=== PATIENT | female | born 1990 | race African-American/Black ===

== ENCOUNTER 2016-09-18 17:52 | Emergency (ER) | payer SELFPAY ==
--- NOTE | 2016-09-18 18:10 | ER Document Report ---
ED Medical Screen (RME) - General Stated Complaint: TONGUE ISSUE Notes: patient is a 26 year old female p/w "yellow stuff on her tongue". she noticied it this am. able to scrape it off. Abx two weeks go, no recent vaginal odor or discharge. Denies inhaled medications I have greeted and performed a rapid initial assessment of this patient. A comprehensive ED assessment and evaluation of the patient, analysis of test results and completion of the medical decision making process will be conducted by additional ED providers. TRAVEL OUTSIDE OF THE [place] IN LAST 30 DAYS: No - Related Data Allergies/Adverse Reactions: No Known Allergies Allergy (Verified 09/18/16 18:08) Past Medical History - Immunizations Hx Diphtheria, Pertussis, Tetanus Vaccination: No - unknown Physical Exam - Vital signs Vitals: Temp Pulse Resp BP Pulse Ox 98.9 F 77 16 131/78 H 98 09/18/16 18:01 09/18/16 18:01 09/18/16 18:01 09/18/16 18:01 09/18/16 18:01 Course - Vital Signs Vital signs: Temp Pulse Resp BP Pulse Ox 98.9 F 77 16 131/78 H 98 09/18/16 18:01 09/18/16 18:01 09/18/16 18:01 09/18/16 18:01 09/18/16 18:01
--- NOTE | 2016-09-18 19:25 | ER Document Report ---
ED General - General Chief Complaint: Other Stated Complaint: TONGUE ISSUE Notes: Patient is a 26-year-old female recently diagnosed with bacterial vaginosis and treated with a course of metronidazole who presents with 2 days of a yellow, white material covering her tongue. Since that she was able to scrape out the toothbrush that it keeps coming back. Denies any difficulty breathing, swelling or pain to the tongue. No history of similar symptoms in the past. Nothing seems to improve or worsen her symptoms. She has not seen her primary care doctor regarding the above concerns. TRAVEL OUTSIDE OF THE [place] IN LAST 30 DAYS: No - Related Data Allergies/Adverse Reactions: No Known Allergies Allergy (Verified 09/18/16 18:08) Past Medical History - General Information source: Patient - Social History Smoking Status: Never Smoker Chew tobacco use (# tins/day): No Frequency of alcohol use: None Drug Abuse: None Lives with: Family Family History: Reviewed & Not Pertinent Patient has suicidal ideation: No Patient has homicidal ideation: No Renal/ Medical History: Denies: Hx Peritoneal Dialysis Surgical Hx: Negative - Immunizations Hx Diphtheria, Pertussis, Tetanus Vaccination: No - unknown Review of Systems - Review of Systems Notes: Constitutional: Negative for fever. HENT: Negative for sore throat. Eyes: Negative for visual changes. Cardiovascular: Negative for chest pain. Respiratory: Negative for shortness of breath. Gastrointestinal: Negative for abdominal pain, vomiting or diarrhea. Genitourinary: Negative for dysuria. Musculoskeletal: Negative for back pain. Skin: Negative for rash. Neurological: Negative for headaches, weakness or numbness. 10 point ROS negative except as marked above and in HPI. Physical Exam - Vital signs Vitals: Temp Pulse Resp BP Pulse Ox 98.9 F 77 16 131/78 H 98 09/18/16 18:01 09/18/16 18:01 09/18/16 18:01 09/18/16 18:01 09/18/16 18:01 Interpretation: Normal Notes: PHYSICAL EXAMINATION: GENERAL: Well-appearing, well-nourished and in no acute distress. HEAD: Atraumatic, normocephalic. EYES: sclera anicteric, conjunctiva are normal. ENT: Moist mucous membranes. There is a white, yellow material covering the central portion of the tongue is able to be scraped away without difficulty NECK: Normal range of motion LUNGS: Normal work of breathing HEART: 2+ radial pulses bilaterally EXTREMITIES: no pitting or edema. No cyanosis. NEUROLOGICAL: No focal neurological deficits. Moves all extremities spontaneously and on command. PSYCH: Normal mood, normal affect. SKIN: Warm, Dry, normal turgor, no rashes or lesions noted. Course - Re-evaluation Re-evalutation: 09/18/16 19:22 Patient presents with signs and symptoms consistent with oral thrush. She was started on nystatin. Oropharynx is widely patent without any evidence of Mynor 's angina, peritonsillar abscess, or airway compromise.At this time will discharge with return precautions and follow-up recommendations. Verbal discharge instructions given a the bedside and opportunity for questions given. Medication warnings reviewed. Patient is in agreement with this plan and has verbalized understanding of return precautions and the need for primary care follow-up in the next 24-72 hours. - Vital Signs Vital signs: Temp Pulse Resp BP Pulse Ox 98.5 F 63 16 132/73 H 96 09/18/16 20:35 09/18/16 20:35 09/18/16 20:35 09/18/16 20:35 09/18/16 20:35 Discharge - Discharge Clinical Impression: Thrush, oral Condition: Good Disposition: HOME, SELF-CARE Additional Instructions: You have thrush. Please use the nystatin swish as recommended. Follow up with your primary care doctor next several days. Return for any difficulty swallowing, breathing, worsening of your symptoms, or any other symptoms that are worrisome to you. Prescriptions: Nystatin 6 ml PO QID #200 ml
[2016-09-18 20:37] VITALS: BP 132/73
== END 2016-09-18 20:05 | disposition home or self-care (01) ==
LOC: ER 17:52
DX: B37.0 Candidal stomatitis (principal)
CPT/HCPCS: 99282

== ENCOUNTER 2016-12-15 08:42 | Emergency (ER) | payer SELFPAY ==
[2016-12-15 09:58] LABS: APPEARANCE,URINE SLIGHTLY-CLOUDY; BILIRUBIN,URINE NEGATIVE (NEGATIVE); GLUCOSE, URINE NEGATIVE (NEGATIVE); KETONES,URINE NEGATIVE (NEGATIVE); LEUKOCYTE ESTERASE,URINE NEGATIVE (NEGATIVE); NITRITE,URINE NEGATIVE (NEGATIVE); PROTEIN,URINE NEGATIVE (NEGATIVE)
[2016-12-15] MEDS ORDERED: ONDANSETRON 4 MG TAB.RAPDIS PO ONE (10:51)
[2016-12-15 11:33] LABS: ABSOLUTE LYMPHOCYTES (AUTO) 1.9 10^3/uL (0.5-4.7); ABSOLUTE MONOCYTES (AUTO) 0.6 10^3/uL (0.1-1.4); ABSOLUTE NEUT (AUTO) 8.6 10^3/uL (1.7-8.2); BASOPHILS % (AUTO) 0.4 % (0-2); EOSINOPHILS % (AUTO) 0.4 % (0-6); HEMOGLOBIN 13.1 g/dL (12.0-15.5); HGB HCT DIFFERENCE -1.7; LYMPHOCYTES % (AUTO) 17.4 % (13-45); MEAN CORPUSCULAR HEMOGLOBIN 27.8 pg (27.0-33.4); MEAN CORPUSCULAR HGB CONC 31.8 g/dL (32.0-36.0); MEAN CORPUSCULAR VOLUME 87 fl (80-97); MONOCYTES % (AUTO) 5.2 % (3-13); RED CELL DISTRIBUTION WIDTH 13.1 % (11.5-14.0); SEGMENTED NEUTROPHILS % (AUTO) 76.6 % (42-78); WHITE BLOOD COUNT 11.2 10^3/uL (4.0-10.5)
[2016-12-15 12:02] LABS: ANION GAP 10 (5-19); BLOOD UREA NITROGEN 10 mg/dL (7-20); CALCIUM 9.5 mg/dL (8.4-10.2); CARBON DIOXIDE 25 mmol/L (22-30); CHLORIDE 104 mmol/L (98-107); CREATININE RESULT 0.68 mg/dL (0.52-1.25); GLUCOSE 82 mg/dL (75-110); LIPASE 39.8 U/L (23-300); POTASSIUM 4.7 mmol/L (3.6-5.0)
--- NOTE | 2016-12-15 12:19 | ER Document Report ---
ED GI/ - General Chief Complaint: Vomiting/Diarrhea Stated Complaint: DIARRHEA, VOMITTING Time Seen by Provider: 12/15/16 09:49 Notes: 26-year-old female presents emergency department complaining of vomiting and diarrhea since yesterday. Denies any abdominal pain, blood in her vomit, pelvic pain, urinary urgency, hesitancy, pyuria, vaginal itching, abnormal vaginal discharge. TRAVEL OUTSIDE OF THE [place] IN LAST 30 DAYS: No - Related Data Allergies/Adverse Reactions: No Known Allergies Allergy (Verified 12/15/16 08:45) Past Medical History - Social History Smoking Status: Never Smoker Family History: Reviewed & Not Pertinent Patient has suicidal ideation: No Patient has homicidal ideation: No Renal/ Medical History: Denies: Hx Peritoneal Dialysis - Immunizations Hx Diphtheria, Pertussis, Tetanus Vaccination: No - unknown Review of Systems - Review of Systems Constitutional: No symptoms reported EENT: No symptoms reported Cardiovascular: No symptoms reported Respiratory: No symptoms reported Gastrointestinal: See HPI Genitourinary: See HPI Female Genitourinary: See HPI -: Yes All other systems reviewed and negative Physical Exam - Vital signs Vitals: Temp Pulse Resp BP Pulse Ox 98.1 F 78 16 124/56 L 98 12/15/16 08:46 12/15/16 08:46 12/15/16 08:46 12/15/16 08:46 12/15/16 08:46 - Notes Notes: PHYSICAL EXAM GENERAL: Alert, interacts well. HEAD: Normocephalic, atraumatic. EYES: Pupils equal, round, and reactive to light. Extraocular movements intact. ENT: Oral mucosa moist, tongue midline. NECK: Full range of motion. Supple. Trachea midline. LUNGS: Clear to auscultation bilaterally, no wheezes, rales, or rhonchi. No respiratory distress. HEART: Regular rate and rhythm. No murmurs, gallops, or rubs. ABDOMEN: Soft, nondistended, nontender. No guarding, rebound, or rigidity.. Bowel sounds present in all 4 quadrants. FEMALE : Normal external exam. No evidence of lesions, lacerations, bruising or vesicles. Speculum exam normal cervix closed. No evidence of vaginal discharge with odor. No evidence of lesions. No vaginal bleeding. Bimanual exam normal no cervical motion tenderness. No adnexal mass or adnexal tenderness. EXTREMITIES: Moves all 4 extremities spontaneously. No edema, radial and dorsalis pedis pulses 2/4 bilaterally. No cyanosis. NEUROLOGICAL: Alert and oriented x4. Normal speech. PSYCH: Normal affect, normal mood. SKIN: Warm, dry, normal turgor. No rashes or lesions noted. Course - Re-evaluation Re-evalutation: 12/15/16 19:44 Patient is a 26-year-old female who is hemodynamic stable, no acute distress afebrile. Labs without any abnormalities. Pelvic exam normal. Patient to go home on [id number] medication and to follow-up with primary care. Discussed signs and symptoms to be aware to return to emergency department. Patient is agreeable with plan. - Vital Signs Vital signs: Temp Pulse Resp BP Pulse Ox 98.5 F 72 16 113/63 96 12/15/16 13:14 12/15/16 13:14 12/15/16 13:14 12/15/16 13:14 12/15/16 13:14 - Laboratory Result Diagrams: 12/15/16 11:15 12/15/16 11:15 Laboratory results interpreted by me: 12/15/16 12/15/16 09:40 11:15 WBC 11.2 H MCHC 31.8 L Absolute Neutrophils 8.6 H Urine Urobilinogen 2.0 H Discharge - Discharge Clinical Impression: Vomiting Condition: Good Disposition: HOME, SELF-CARE Instructions: Vomiting ([facility]), Diarrhea, Nonspecific ([facility]), Antinausea Medication ([facility]) Additional Instructions: Patients should be encouraged to eat as tolerated. Smaller meals may be less likely to induce vomiting than larger ones. Carbon, low residue foods may also be better tolerated than others. For healthy adults with acute viral gastroenteritis without signs of dehydration , sport drinks, diluted fruit juices, and other flavored soft drinks augmented with saltine crackers and broths or soups can meet the fluid and salt needs in almost all cases. Broiled starches/cereals (potatoes, noodles, rice, wheat, and oat) with some salt are excellent foods to consider. In addition, crackers, bananas, yogurt, soups, and boiled vegetables can also be consumed. While the BRAT diet (bananas, rice, applesauce, and toast) Prescriptions: Ondansetron HCl [Zofran 4 mg Tablet] 1 - 2 tab PO Q4H PRN #30 tablet PRN Reason: Forms: Return to Work Referrals: ALLAN SHARP MD [COMMUNITY BASED STAFF] - Follow up as needed
[2016-12-15 12:24] LABS: CHLAM PCR NOT DETECTED (NOT DETECT)
[2016-12-15 13:17] VITALS: BP 113/63
== END 2016-12-15 13:18 | disposition home or self-care (01) ==
LOC: ER 08:42
DX: R11.10 Vomiting, unspecified (principal); R19.7 Diarrhea, unspecified
CPT/HCPCS: 99284; 36415; 87086; 87210; 83690; 85025; 81025; 80048; 81001; 87491; 87591; S0119

== ENCOUNTER 2017-10-08 19:51 | Emergency (ER) | payer OTHER ==
[2017-10-08 22:27] LABS: HEMATOCRIT 39.5 % (36.0-47.0); HEMOGLOBIN 13.1 g/dL (12.0-15.5); MEAN CORPUSCULAR HEMOGLOBIN 28.4 pg (27.0-33.4); MEAN CORPUSCULAR HGB CONC 33.1 g/dL (32.0-36.0); MEAN CORPUSCULAR VOLUME 86 fl (80-97); PLATELET COUNT 350 10^3/uL (150-450); RED BLOOD COUNT 4.61 10^6/uL (3.72-5.28); RED CELL DISTRIBUTION WIDTH 13.4 % (11.5-14.0); WHITE BLOOD COUNT 22.8 10^3/uL (4.0-10.5)
[2017-10-08 22:49] LABS: ABSOLUTE LYMPHOCYTES# (MANUAL) 1.8 10^3/uL (0.5-4.7); ABSOLUTE MONOCYTES # (MANUAL) 0.7 10^3/uL (0.1-1.4); ABSOLUTE NEUTROPHILS# (MANUAL) 20.3 10^3/uL (1.7-8.2); BASOPHILS % (MANUAL) 0 % (0-2); EOSINOPHILS % (MANUAL) 0 % (0-6); LYMPHOCYTES % (MANUAL) 8 % (13-45); MONOCYTES % (MANUAL) 3 % (3-13); SEGMENTED NEUTROPHILS % (MAN) 89 % (42-78); TOTAL CELLS COUNTED 100
[2017-10-08] MEDS ORDERED: NORMAL SALINE 1000 ML 1,000 ML IV ONE (22:49)
[2017-10-08] MEDS ORDERED: ONDANSETRON HCL INJ/PF 4 MG/2 ML SDV IV ONE (22:50)
[2017-10-08] MEDS ORDERED: MORPHINE SULFATE 10 MG/ML INJ IV PRN (22:50)
[2017-10-08 22:51] LABS: PLATELET COMMENT ADEQUATE; PLATELET LARGE PRESENT; RBC MORPHOLOGY COMMENT NORMO-CYTIC/CHROMIC
[2017-10-08 22:57] LABS: ALANINE AMINOTRANSFERASE 38 U/L (9-52); ALBUMIN 4.4 g/dL (3.5-5.0); ALKALINE PHOSPHATASE 73 U/L (38-126); ANION GAP 10 (5-19); ASPARTATE AMINO TRANSFERASE 27 U/L (14-36); BILIRUBIN,DIRECT 0.1 mg/dL (0.0-0.4); BILIRUBIN,TOTAL 0.5 mg/dL (0.2-1.3); BLOOD UREA NITROGEN 14 mg/dL (7-20); CALCIUM 9.9 mg/dL (8.4-10.2); CARBON DIOXIDE 26 mmol/L (22-30); CHLORIDE 102 mmol/L (98-107); GLUCOSE 89 mg/dL (75-110); LIPASE 44.7 U/L (23-300); POTASSIUM 4.2 mmol/L (3.6-5.0); TOTAL PROTEIN 7.1 g/dL (6.3-8.2)
--- NOTE | 2017-10-08 23:01 | ER Document Report ---
ED General - General Chief Complaint: Abdominal Pain Stated Complaint: ABDOMINAL PAIN Time Seen by Provider: 10/08/17 21:24 Notes: Patient is a 27-year-old female without past medical history, no prior surgical history presents with 24 hours of generalized abdominal cramping, nausea, and diarrhea. Patient reports that the symptoms started gradually and have been worsening since onset. She describes the pain as a generalized, cramping, bloating pain. She states that it feels like she has to have a bowel movement or pass gas but she is unable to do so. Nothing worsens her symptoms. She denies any history of similar symptoms in the past. She has had a fever at home. She denies any associated dysuria, hematuria, headache, neck pain, cough or sputum production. She has not seen her primary doctor regarding today's concerns. TRAVEL OUTSIDE OF THE [place] IN LAST 30 DAYS: No - Related Data Allergies/Adverse Reactions: No Known Allergies Allergy (Verified 12/15/16 08:45) Past Medical History - General Information source: Patient - Social History Smoking Status: Never Smoker Chew tobacco use (# tins/day): No Frequency of alcohol use: Occasional Drug Abuse: None Lives with: Family Family History: Reviewed & Not Pertinent Patient has suicidal ideation: No Patient has homicidal ideation: No Renal/ Medical History: Denies: Hx Peritoneal Dialysis - Immunizations Hx Diphtheria, Pertussis, Tetanus Vaccination: No - unknown Review of Systems - Review of Systems Notes: Constitutional: Negative for fever. HENT: Negative for sore throat. Eyes: Negative for visual changes. Cardiovascular: Negative for chest pain. Respiratory: Negative for shortness of breath. Gastrointestinal: Positive for abdominal pain and diarrhea Genitourinary: Negative for dysuria. Musculoskeletal: Negative for back pain. Skin: Negative for rash. Neurological: Negative for headaches, weakness or numbness. 10 point ROS negative except as marked above and in HPI. Physical Exam - Vital signs Vitals: Temp Pulse Resp BP Pulse Ox 100.2 F 98 18 143/67 H 98 10/08/17 20:16 10/08/17 20:16 10/08/17 20:16 10/08/17 20:16 10/08/17 20:16 Interpretation: Normal Notes: PHYSICAL EXAMINATION: GENERAL: Appears moderately uncomfortable but no acute distress HEAD: Atraumatic, normocephalic. EYES: Pupils equal round and reactive to light, extraocular movements intact, sclera anicteric, conjunctiva are normal. ENT: nares patent, oropharynx clear without exudates. Moderately dry mucous membranes. NECK: Normal range of motion, supple without lymphadenopathy LUNGS: Breath sounds clear to auscultation bilaterally and equal. No wheezes rales or rhonchi. HEART: Regular tachycardia without murmurs ABDOMEN: Soft, generalized lower abdominal tenderness on palpation but no upper abdominal tenderness on palpation, normoactive bowel sounds. No guarding, no rebound. No masses appreciated. EXTREMITIES: Normal range of motion, no pitting or edema. No cyanosis. NEUROLOGICAL: No focal neurological deficits. Moves all extremities spontaneously and on command. PSYCH: Normal mood, normal affect. SKIN: Warm, Dry, normal turgor, no rashes or lesions noted. Course - Re-evaluation Re-evalutation: 10/08/17 23:00 Patient presents with generalized lower abdominal discomfort that is described as cramping, she appears quite uncomfortable. She has diffuse tenderness to the lower abdomen without any areas of rigidity, rebound or guarding. She has no vomiting but has had started within the last several hours. She reports a subjective fever at home. She has not had any vomiting. Clinical history and exam are most consistent with a likely colitis however laboratories are notable for an impressive leukocytosis. Given her degree of pain, her marked leukocytosis, tachycardia and fever will proceed with a CT abdomen pelvis further clarify. 10/09/17 01:42 CT scan does demonstrate findings consistent with an acute colitis which appears most consistent with patient's clinical presentation. Patient has had improvement of her symptoms with supportive care in the emergency department and is now able to tolerate oral intake. She was started on ciprofloxacin and metronidazole for presumption of infectious colitis. At this time will discharge with return precautions and follow-up recommendations. Verbal discharge instructions given a the bedside and opportunity for questions given. Medication warnings reviewed. Patient is in agreement with this plan and has verbalized understanding of return precautions and the need for primary care follow-up in the next 24-72 hours. - Vital Signs Vital signs: Temp Pulse Resp BP Pulse Ox 100.2 F 98 18 143/67 H 98 10/08/17 20:16 10/08/17 20:16 10/08/17 20:16 10/08/17 20:16 10/08/17 20:16 - Laboratory Result Diagrams: 10/08/17 22:10 10/08/17 22:10 Laboratory results interpreted by me: 10/08/17 10/08/17 22:10 22:30 WBC 22.8 H Seg Neuts % (Manual) 89 H Lymphocytes % (Manual) 8 L Abs Neuts (Manual) 20.3 H Urine Blood MODERATE H Urine Urobilinogen 2.0 H Ur Leukocyte Esterase MODERATE H - Diagnostic Test Radiology reviewed: Reports reviewed Discharge - Discharge Clinical Impression: Infectious colitis, Generalized abdominal pain Diarrhea Qualifiers: Diarrhea type: unspecified type Qualified Code(s): R19.7 - Diarrhea, unspecified Condition: Good Disposition: HOME, SELF-CARE Additional Instructions: You were seen today for abdominal pain with associated diarrhea. Your CT scan does show diffuse inflammation of the colon suggestive of an infectious colitis. You are being started on antibiotics to treat this infection and inflammation. Please take all of them as directed and complete them even if your symptoms resolve. Please follow-up with your primary care physician within the next 48 hours. Return to the emergency department immediately if you develop worsening pain, persistent vomiting, began having bloody stools, develop a fever of greater than 101F, or have any other symptoms that are concerning to you. Prescriptions: Ciprofloxacin HCl [Cipro 500 mg Tablet] 500 mg PO BID #20 tablet Metronidazole [Flagyl 500 mg Tablet] 500 mg PO Q6H #40 tablet Forms: Return to Work
[2017-10-08 23:45] LABS: APPEARANCE,URINE CLEAR; BILIRUBIN,URINE NEGATIVE (NEGATIVE); COLOR,URINE YELLOW; GLUCOSE, URINE NEGATIVE (NEGATIVE); KETONES,URINE NEGATIVE (NEGATIVE); LEUKOCYTE ESTERASE,URINE MODERATE (NEGATIVE); NITRITE,URINE NEGATIVE (NEGATIVE); PROTEIN,URINE NEGATIVE (NEGATIVE); URINE SPECIFIC GRAVITY 1.021
[2017-10-09] MEDS ORDERED: KETOROLAC TROMETHAMINE INJ/PF 30 MG/1 ML SDV IV ONE (01:16)
--- NOTE | 2017-10-09 01:28 | RADIOLOGY REPORT (SQ) ---
EXAM DESCRIPTION: CT ABD/PELVIS WITH IV ONLY CLINICAL HISTORY: 27 years Female, diffuse abdominal pain, leukocytosis COMPARISON: None. TECHNIQUE: 100 mL Isovue-370 contrast. Coronal and sagittal reformat. This exam was performed according to our departmental dose-optimization program, which includes automated exposure control, adjustment of the mA and/or kV according to patient size and/or use of iterative reconstruction technique. FINDINGS: Moderate diffuse bowel wall thickening of the transverse, left, and sigmoid colon. [id number] diffuse bowel wall thickening of several segments of jejunal and ileal small bowel including at the upper pelvis with mild inflamed surrounding fat. Terminal ileum has a normal CT appearance. Mild mesenteric lymphadenitis of the right lower abdominal quadrant. 0.5 cm diameter air-filled appendix itself appears within normal limits. There is small nonspecific streakiness associated with periappendiceal fat. 0.2 cm uncomplicated right renal stone. Inferior thorax, liver, gallbladder, pancreas, spleen, adrenals, renal system, pelvic organs, lymphatics, vasculature, and musculoskeleton appear otherwise unremarkable. IMPRESSION: Bowel wall thickening of the colon and small bowel. Infectious, inflammatory, and neoplastic processes are in the differential diagnosis.
[2017-10-09] MEDS ORDERED: METRONIDAZOLE 500 MG TABLET PO ONE (01:41)
[2017-10-09] MEDS ORDERED: HYDROCODONE/ACETAMINOPHEN 5-325 MG (6 TAB/ER DISP) PO PRN (01:41)
[2017-10-09] MEDS ORDERED: CIPROFLOXACIN HCL 500 MG TABLET PO ONE (01:41)
[2017-10-09] MEDS ORDERED: ONDANSETRON ODT 4 MG TAB (6 TAB/ER DISP) PO PRN (01:41)
[2017-10-09 02:02] VITALS: BP 118/59
== END 2017-10-09 02:07 | disposition home or self-care (01) ==
LOC: ER 19:51
DX: A09 Infectious gastroenteritis and colitis, unspecified (principal); R10.84 Generalized abdominal pain; R11.0 Nausea
CPT/HCPCS: 99284; 96361; 96374; 96375; 36415; 83690; 84703; 85025; 80053; 81001; 74177; J1885; J2270; J2405; J7030

== ENCOUNTER 2017-10-13 23:10 | Inpatient (IN) | payer OTHER ==
[2017-10-14] MEDS ORDERED: NORMAL SALINE 1000 ML 1,000 ML IV ONE ×2 (00:53→02:14)
[2017-10-14] MEDS ORDERED: DICYCLOMINE HCL 20 MG TABLET PO ONE (00:59)
[2017-10-14] MEDS ORDERED: ONDANSETRON HCL INJ/PF 4 MG/2 ML SDV IV ONE (00:59)
[2017-10-14 01:36] LABS: ABSOLUTE BASOPHILS # (AUTO) 0.1 10^3/uL (0.0-0.2); ABSOLUTE LYMPHOCYTES (AUTO) 1.8 10^3/uL (0.5-4.7); ABSOLUTE MONOCYTES (AUTO) 0.9 10^3/uL (0.1-1.4); BASOPHILS % (AUTO) 0.3 % (0-2); EOSINOPHILS % (AUTO) 0.1 % (0-6); HEMATOCRIT 38.5 % (36.0-47.0); HEMOGLOBIN 12.9 g/dL (12.0-15.5); LYMPHOCYTES % (AUTO) 9.8 % (13-45); MEAN CORPUSCULAR HEMOGLOBIN 28.5 pg (27.0-33.4); MEAN CORPUSCULAR HGB CONC 33.6 g/dL (32.0-36.0); MEAN CORPUSCULAR VOLUME 85 fl (80-97); PLATELET COUNT 418 10^3/uL (150-450); RED BLOOD COUNT 4.55 10^6/uL (3.72-5.28); RED CELL DISTRIBUTION WIDTH 13.2 % (11.5-14.0); SEGMENTED NEUTROPHILS % (AUTO) 84.8 % (42-78); TOTAL CELLS COUNTED % (AUTO) 100 %
[2017-10-14 01:41] LABS: APPEARANCE,URINE SLIGHTLY-CLOUDY; BILIRUBIN,URINE NEGATIVE (NEGATIVE); COLOR,URINE AMBER; GLUCOSE, URINE NEGATIVE (NEGATIVE); KETONES,URINE 20 mg/dL (NEGATIVE); LEUKOCYTE ESTERASE,URINE LARGE (NEGATIVE); NITRITE,URINE NEGATIVE (NEGATIVE); PROTEIN,URINE NEGATIVE (NEGATIVE); URINE SPECIFIC GRAVITY 1.028
[2017-10-14 01:43] LABS: WHITE BLOOD COUNT 18.8 10^3/uL (4.0-10.5)
[2017-10-14 01:47] LABS: ALANINE AMINOTRANSFERASE 35 U/L (9-52); ALBUMIN 4.3 g/dL (3.5-5.0); ALKALINE PHOSPHATASE 56 U/L (38-126); ANION GAP 14 (5-19); ASPARTATE AMINO TRANSFERASE 24 U/L (14-36); BILIRUBIN,DIRECT 0.3 mg/dL (0.0-0.4); BILIRUBIN,TOTAL 0.4 mg/dL (0.2-1.3); BLOOD UREA NITROGEN 12 mg/dL (7-20); CALCIUM 9.9 mg/dL (8.4-10.2); CARBON DIOXIDE 25 mmol/L (22-30); CHLORIDE 102 mmol/L (98-107); GLUCOSE 100 mg/dL (75-110); POTASSIUM 4.9 mmol/L (3.6-5.0); SODIUM 141.2 mmol/L (137-145); TOTAL PROTEIN 7.3 g/dL (6.3-8.2)
--- NOTE | 2017-10-14 02:28 | ER Document Report ---
ED GI/ - General Chief Complaint: Abdominal Pain Stated Complaint: FEVER Time Seen by Provider: 10/14/17 00:43 Mode of Arrival: Ambulatory Information source: Patient TRAVEL OUTSIDE OF THE [place] IN LAST 30 DAYS: No - HPI Patient complains to provider of: Abdominal pain, Vomiting Onset: This afternoon Timing/Duration: Gradual, Persistent Quality of pain: Cramping, Pressure, Stabbing Severity at maximum: Moderate Severity in ED: Moderate Pain Level: 4 Associated symptoms: Fever, Nausea, Vomiting Exacerbated by: Denies Relieved by: Denies Similar symptoms previously: Yes Recently seen / treated by doctor: Yes Notes: 10/14/17 02:31 Patient is a 27-year-old female presenting to the emergency room complaining of worsening abdominal pain with vomiting and fever, symptoms started approximately 5-6 days ago, she was seen in this emergency department and diagnosed with infectious colitis, discharged home with p.o. antibiotics, she came back the next day because she was unable to tolerate the p.o. antibiotics at home and was feeling much worse, she was admitted to the hospitalist service , treated with IV antibiotics, her white count trended down and she started to feel much better, was discharged on 10/12/2017 with further p.o. antibiotics, over the course of the last 2-3 days she has been feeling much worse prompting her to return to the emergency room this, on arrival she is tachycardic and appears to be in moderate pain - Related Data Allergies/Adverse Reactions: No Known Allergies Allergy (Verified 12/15/16 08:45) Past Medical History - General Information source: Patient - Social History Smoking Status: Never Smoker Chew tobacco use (# tins/day): No Frequency of alcohol use: None Drug Abuse: None Family History: Reviewed & Not Pertinent Patient has suicidal ideation: No Patient has homicidal ideation: No Renal/ Medical History: Denies: Hx Peritoneal Dialysis - Immunizations Hx Diphtheria, Pertussis, Tetanus Vaccination: No - unknown Review of Systems - Review of Systems Constitutional: Chills, Fever EENT: No symptoms reported Cardiovascular: No symptoms reported Respiratory: No symptoms reported Gastrointestinal: See HPI Genitourinary: No symptoms reported Female Genitourinary: No symptoms reported Musculoskeletal: No symptoms reported Skin: No symptoms reported Hematologic/Lymphatic: No symptoms reported Neurological/Psychological: No symptoms reported -: Yes All other systems reviewed and negative Physical Exam - Vital signs Vitals: Temp Pulse Resp BP Pulse Ox 99.5 F 120 H 20 131/76 H 96 10/13/17 23:35 10/13/17 23:35 10/13/17 23:35 10/13/17 23:35 10/13/17 23:35 Interpretation: Tachycardic - General General appearance: Alert In distress: Mild - HEENT Head: Normocephalic, Atraumatic Eyes: Normal Pupils: PERRL - Respiratory Respiratory status: No respiratory distress Chest status: Nontender Breath sounds: Normal Chest palpation: Normal - Cardiovascular Rhythm: Regular Heart sounds: Normal auscultation Murmur: No - Abdominal Inspection: Normal Distension: No distension Bowel sounds: Normal Tenderness: Tender - Mild diffuse tenderness Organomegaly: No organomegaly - Back Back: Normal, Nontender - Extremities General upper extremity: Normal inspection, Nontender, Normal color, Normal ROM , Normal temperature General lower extremity: Normal inspection, Nontender, Normal color, Normal ROM , Normal temperature, Normal weight bearing. No: Katia's sign - Neurological Neuro grossly intact: Yes Cognition: Normal Orientation: AAOx4 Radha Coma Scale Eye Opening: Spontaneous [place] Coma Scale Verbal: Oriented Radha Coma Scale Motor: Obeys Commands [place] Coma Scale Total: 15 Speech: Normal Motor strength normal: LUE, RUE, LLE, RLE Sensory: Normal - Psychological Associated symptoms: Normal affect, Normal mood - Skin Skin Temperature: Warm Skin Moisture: Dry Skin Color: Normal Course - Re-evaluation Re-evalutation: 10/14/17 02:33 Patient with worsening abdominal pain, mild elevated temperature and increase in leukocytosis from when she was discharged just 2 days ago, she has been taking her antibiotics at home but is feeling much worse today, was recently diagnosed with infectious colitis, patient was discussed with the hospitalist who agrees to admit for further evaluation and treatment - Vital Signs Vital signs: Temp Pulse Resp BP Pulse Ox 99.5 F 120 H 12 114/73 96 10/13/17 23:35 10/13/17 23:35 10/14/17 02:14 10/14/17 02:14 10/14/17 02:14 - Laboratory Result Diagrams: 10/14/17 01:05 10/14/17 01:05 Laboratory results interpreted by me: 10/14/17 10/14/17 01:05 01:10 WBC 18.8 H D Seg Neutrophils % 84.8 H Lymphocytes % 9.8 L Absolute Neutrophils 16.0 H Urine Ketones 20 H Urine Blood MODERATE H Urine Urobilinogen 2.0 H Ur Leukocyte Esterase LARGE H Discharge - Discharge Clinical Impression: Infectious colitis, Generalized abdominal pain Condition: Fair Disposition: ADMITTED INPATIENT Admitting Provider: Hospitalist Unit Admitted: Medical Floor
[2017-10-14] MEDS ORDERED: MAG HYDROX/AL HYDROX/SIMETH SUSP 30 ML UDCUP PO PRN (02:48)
[2017-10-14] MEDS ORDERED: IPRATROPIUM/ALBUTEROL 0.5-2.5 MG/3 ML AMPUL NEB PRN (02:48)
[2017-10-14] MEDS ORDERED: MAGNESIUM HYDROXIDE SUSP 30 ML UDCUP PO PRN (02:48)
[2017-10-14] MEDS ORDERED: CIPROFLOXACIN 400 MG/D5W RTU 400 MG/200 ML RTUPB IV SCH (04:00)
--- NOTE | 2017-10-14 04:33 | PDOC H&P ---
History of Present Illness Admission Date/PCP: 10/14/17 02:47 Patient complains of: Abdominal pain History of Present Illness: TRISTA JOHN is a 27 year old female with a past medical history of obesity and hospitalization for infectious colitis 4 days ago discharged yesterday. Patient was greatly improved at time of discharge after empiric treatment with IV Cipro and Flagyl. She was discharged with oral equivalents and compliant however developed a return of abdominal pain and loose stools prompting her return to the emergency room. She admits nausea without vomiting and diarrhea without blood. She denies polyuria, dysuria, previous episode, infectious contacts or suspect meals. In the emergency room she is found to have leukocytosis of 18,000. She is referred to the hospitalist for admission Past Medical History Medical History: None Cardiac Medical History: Reports: None Pulmonary Medical History: Reports: None EENT Medical History: Reports: None Neurological Medical History: Reports: None Endocrine Medical History: Reports: None Renal/ Medical History: Reports: None Malignancy Medical History: Reports: None GI Medical History: Reports: Other - Colitis Musculoskeltal Medical History: Reports: None Skin Medical History: Reports: None Psychiatric Medical History: Reports: None Traumatic Medical History: Reports: None Hematology: Reports: None Infectious Medical History: Reports: None Past Surgical History Past Surgical History: Reports: None Social History Information Source: Patient Lives with: Family Smoking Status: Never Smoker Frequency of Alcohol Use: Rare Hx Recreational Drug Use: No Drugs: None - Advance Directive Resuscitation Status: Full Code Family History Family History: DM, Hyperlipidemia, Hypertension Parental Family History Reviewed: Yes Children Family History Reviewed: Yes Sibling(s) Family History Reviewed.: Yes Medication/Allergy Home Medications: Ciprofloxacin HCl [Cipro 500 mg Tablet] 500 mg PO BID 10/10/17 Multivitamin [Daily Multiple Vitamin] 1 tab PO DAILY 10/10/17 Metronidazole [Flagyl 500 mg Tablet] 500 mg PO Q8 #30 tablet 10/12/17 Ondansetron [Zofran Odt 4 mg Tablet] 4 mg PO Q6HP PRN #30 tab.rapdis 10/12/17 Hydrocodone Bit/Acetaminophen [Hydrocodon-Acetaminophen 5-325] 1 each PO ASDIR PRN 10/14/17 Allergies/Adverse Reactions: No Known Allergies Allergy (Verified 12/15/16 08:45) Review of Systems Constitutional: ABSENT: chills, fever(s), headache(s), weight gain, weight loss Eyes: ABSENT: visual disturbances Ears: ABSENT: hearing changes Cardiovascular: ABSENT: chest pain, dyspnea on exertion, edema, orthropnea, palpitations Respiratory: ABSENT: cough, hemoptysis Gastrointestinal: ABSENT: abdominal pain, constipation, diarrhea, hematemesis, hematochezia, nausea, vomiting Genitourinary: ABSENT: dysuria, hematuria Musculoskeletal: ABSENT: joint swelling Integumentary: ABSENT: rash, wounds Neurological: ABSENT: abnormal gait, abnormal speech, confusion, dizziness, focal weakness, syncope Psychiatric: ABSENT: anxiety, depression, homidical ideation, suicidal ideation Endocrine: ABSENT: cold intolerance, heat intolerance, polydipsia, polyuria Hematologic/Lymphatic: ABSENT: easy bleeding, easy bruising Physical Exam Vital Signs: Temp Pulse Resp BP Pulse Ox 99.5 F 120 H 24 H 103/58 L 97 10/13/17 23:35 10/13/17 23:35 10/14/17 03:01 10/14/17 03:01 10/14/17 03:01 General appearance: PRESENT: cooperative, mild distress, morbidly obese Head exam: PRESENT: atraumatic, normocephalic Eye exam: PRESENT: conjunctiva pink, EOMI, PERRLA. ABSENT: scleral icterus Ear exam: PRESENT: normal external ear exam Mouth exam: PRESENT: moist, tongue midline Neck exam: ABSENT: carotid bruit, JVD, lymphadenopathy, thyromegaly Respiratory exam: PRESENT: clear to auscultation nalini. ABSENT: rales, rhonchi, wheezes Cardiovascular exam: PRESENT: tachycardia. ABSENT: diastolic murmur, rubs, systolic murmur Pulses: PRESENT: normal dorsalis pedis pul Vascular exam: PRESENT: normal capillary refill GI/Abdominal exam: PRESENT: diminished bowel sounds, distended, hypoactive bowel sounds, soft, tenderness. ABSENT: ascites, firm, guarding, hernia, rebound Rectal exam: PRESENT: deferred Extremities exam: PRESENT: full ROM. ABSENT: calf tenderness, clubbing, pedal edema Neurological exam: PRESENT: alert, awake, oriented to person, oriented to place , oriented to time, oriented to situation, CN II-XII grossly intact. ABSENT: motor sensory deficit Psychiatric exam: PRESENT: appropriate affect, normal mood. ABSENT: homicidal ideation, suicidal ideation Skin exam: PRESENT: dry, intact, warm. ABSENT: cyanosis, rash Assessment & Plan - Diagnosis (1) Generalized abdominal pain Is this a current diagnosis for this admission?: Yes Plan: Likely secondary to infectious colitis. Treatment of active infection and symptomatic management. (2) Infectious colitis Is this a current diagnosis for this admission?: Yes Plan: Medical bed, collection of stool sample for WBC and C. difficile. IV fluid challenge, empiric treatment with IV Flagyl and Cipro initiated follow-up CBC, chemistry and aforementioned labs. - Time Time Spent: 30 to 50 Minutes - Inpatient Certification Medical Necessity: Need Close Monitoring Due to Risk of Patient Decompensation
[2017-10-14] MEDS: ACETAMINOPHEN 325 MG TABLET PO PRN ×3 (05:09→22:00)
[2017-10-14] MEDS: HEPARIN SOD (PORCINE) 5,000 UNIT/ML 1 ML SYRINGE SUBCUT SCH ×3 (05:09→22:01)
[2017-10-14 05:55] LABS: APPEARANCE,URINE SLIGHTLY-CLOUDY; BILIRUBIN,URINE NEGATIVE (NEGATIVE); COLOR,URINE YELLOW; GLUCOSE, URINE NEGATIVE (NEGATIVE); KETONES,URINE NEGATIVE (NEGATIVE); LEUKOCYTE ESTERASE,URINE LARGE (NEGATIVE); NITRITE,URINE NEGATIVE (NEGATIVE); PROTEIN,URINE NEGATIVE (NEGATIVE); URINE SPECIFIC GRAVITY 1.012; UROBILINOGEN,URINE NEGATIVE mg/dL (<2.0)
[2017-10-14] MEDS: DOCUSATE SODIUM 100 MG CAPSULE PO SCH ×2 (09:21→17:03)
[2017-10-14 10:50] LABS: ABSOLUTE BASOPHILS # (AUTO) 0.1 10^3/uL (0.0-0.2); ABSOLUTE MONOCYTES (AUTO) 0.9 10^3/uL (0.1-1.4); ABSOLUTE NEUT (AUTO) 11.8 10^3/uL (1.7-8.2); BASOPHILS % (AUTO) 0.4 % (0-2); EOSINOPHILS % (AUTO) 0.3 % (0-6); HEMATOCRIT 33.8 % (36.0-47.0); LYMPHOCYTES % (AUTO) 13.6 % (13-45); MEAN CORPUSCULAR HEMOGLOBIN 28.2 pg (27.0-33.4); MEAN CORPUSCULAR HGB CONC 32.6 g/dL (32.0-36.0); MEAN CORPUSCULAR VOLUME 86 fl (80-97); MONOCYTES % (AUTO) 5.9 % (3-13); PLATELET COUNT 353 10^3/uL (150-450); RED BLOOD COUNT 3.91 10^6/uL (3.72-5.28); RED CELL DISTRIBUTION WIDTH 13.3 % (11.5-14.0); SEGMENTED NEUTROPHILS % (AUTO) 79.8 % (42-78); TOTAL CELLS COUNTED % (AUTO) 100 %; WHITE BLOOD COUNT 14.7 10^3/uL (4.0-10.5)
[2017-10-14] MEDS: METRONIDAZOLE 500 MG/NS RTU 100 ML IV SCH ×3 (11:28→23:30)
--- NOTE | 2017-10-14 16:52 | PDOC PROGRESS REPORT ---
Subjective Progress Note for:: 10/14/17 Subjective:: Complaining of lower abdominal pain but she said better than before and she has associated nausea. Reason For Visit: COLITIS, ABD PAIN Physical Exam Vital Signs: Temp Pulse Resp BP Pulse Ox 98.7 F 81 16 105/55 L 97 10/14/17 07:20 10/14/17 07:53 10/14/17 07:53 10/14/17 07:20 10/14/17 07:53 Intake & Output 10/13/17 10/14/17 10/15/17 06:59 06:59 06:59 Weight 96.5 kg General appearance: PRESENT: no acute distress, well-developed, well-nourished Head exam: PRESENT: atraumatic, normocephalic Respiratory exam: PRESENT: clear to auscultation nalini. ABSENT: rales, rhonchi, wheezes Cardiovascular exam: PRESENT: RRR. ABSENT: diastolic murmur, rubs, systolic murmur Neurological exam: PRESENT: alert, awake, oriented to person, oriented to place , oriented to time, oriented to situation, CN II-XII grossly intact. ABSENT: motor sensory deficit Results Laboratory Results: 10/14/17 10:38 10/14/17 10/14/17 10/14/17 04:32 08:00 10:38 WBC 14.7 H RBC 3.91 Hgb 11.0 L Hct 33.8 L MCV 86 MCH 28.2 MCHC 32.6 RDW 13.3 Plt Count 353 Seg Neutrophils % 79.8 H Lymphocytes % 13.6 Monocytes % 5.9 Eosinophils % 0.3 Basophils % 0.4 Absolute Neutrophils 11.8 H Absolute Lymphocytes 2.0 Absolute Monocytes 0.9 Absolute Eosinophils 0.0 Absolute Basophils 0.1 Urine Color YELLOW Urine Appearance SLIGHTLY-CLOUDY Urine pH 6.0 Ur Specific [place] 1.012 Urine Protein NEGATIVE Urine Glucose (UA) NEGATIVE Urine Ketones NEGATIVE Urine Blood LARGE H Urine Nitrite NEGATIVE Ur Leukocyte Esterase LARGE H Urine WBC (Auto) 99 Urine RBC (Auto) 2 Stool for White Cells NO WBCs SEEN Assessment & Plan - Diagnosis (1) Generalized abdominal pain Is this a current diagnosis for this admission?: Yes Plan: Her abdominal pain is subsiding. (2) Infectious colitis Is this a current diagnosis for this admission?: Yes Plan: This is a second admission for the patient. Of note patient was discharged 4 days ago from the hospital after she was treated for possible infectious colitis with Cipro and Flagyl IV that she is switched to p.o. Flagyl and Cipro. She came back yesterday with the same complaints of nausea vomiting and abdominal pain and her labs shows some degree of leukocytosis of 18,000 but during her previous admission it was 21,000. There is some improvement. I restarted her on IV Cipro and Flagyl. - Time Time Spent with patient: 25-34 minutes - Inpatient Certification Medical Necessity: Need for IV Antibiotics
[2017-10-14] MEDS: ONDANSETRON HCL INJ/PF 4 MG/2 ML SDV IV PRN (18:05)
[2017-10-14] MEDS: CIPROFLOXACIN 400 MG/D5W RTU 400 MG/200 ML RTUPB IV SCH (18:05)
[2017-10-15] MEDS: HEPARIN SOD (PORCINE) 5,000 UNIT/ML 1 ML SYRINGE SUBCUT SCH ×3 (05:13→22:22)
[2017-10-15] MEDS: CIPROFLOXACIN 400 MG/D5W RTU 400 MG/200 ML RTUPB IV SCH ×2 (05:19→17:35)
[2017-10-15] MEDS: METRONIDAZOLE 500 MG/NS RTU 100 ML IV SCH ×4 (05:19→23:35)
[2017-10-15 06:54] LABS: ABSOLUTE EOSINOPHILS # (AUTO) 0.1 10^3/uL (0.0-0.6); ABSOLUTE LYMPHOCYTES (AUTO) 2.2 10^3/uL (0.5-4.7); ABSOLUTE MONOCYTES (AUTO) 0.9 10^3/uL (0.1-1.4); ABSOLUTE NEUT (AUTO) 12.5 10^3/uL (1.7-8.2); BASOPHILS % (AUTO) 0.3 % (0-2); EOSINOPHILS % (AUTO) 0.5 % (0-6); HEMATOCRIT 33.8 % (36.0-47.0); HEMOGLOBIN 11.1 g/dL (12.0-15.5); LYMPHOCYTES % (AUTO) 13.8 % (13-45); MEAN CORPUSCULAR HEMOGLOBIN 28.2 pg (27.0-33.4); MEAN CORPUSCULAR HGB CONC 32.8 g/dL (32.0-36.0); MEAN CORPUSCULAR VOLUME 86 fl (80-97); MONOCYTES % (AUTO) 5.7 % (3-13); PLATELET COUNT 367 10^3/uL (150-450); RED BLOOD COUNT 3.93 10^6/uL (3.72-5.28); RED CELL DISTRIBUTION WIDTH 13.4 % (11.5-14.0); SEGMENTED NEUTROPHILS % (AUTO) 79.7 % (42-78); TOTAL CELLS COUNTED % (AUTO) 100 %; WHITE BLOOD COUNT 15.7 10^3/uL (4.0-10.5)
[2017-10-15 07:19] LABS: ANION GAP 13 (5-19); BLOOD UREA NITROGEN 6 mg/dL (7-20); CALCIUM 9.2 mg/dL (8.4-10.2); CARBON DIOXIDE 21 mmol/L (22-30); CHLORIDE 107 mmol/L (98-107); GLUCOSE 81 mg/dL (75-110); POTASSIUM 4.4 mmol/L (3.6-5.0); SODIUM 140.6 mmol/L (137-145)
[2017-10-15] MEDS: ONDANSETRON HCL INJ/PF 4 MG/2 ML SDV IV PRN ×2 (07:46→23:40)
[2017-10-15] MEDS: NORMAL SALINE 1000 ML 1,000 ML IV PRN (08:56)
[2017-10-15] MEDS: DOCUSATE SODIUM 100 MG CAPSULE PO SCH ×2 (10:31→17:36)
[2017-10-15 10:47] LABS: ABSOLUTE LYMPHOCYTES (AUTO) 1.9 10^3/uL (0.5-4.7); ABSOLUTE MONOCYTES (AUTO) 0.9 10^3/uL (0.1-1.4); ABSOLUTE NEUT (AUTO) 12.5 10^3/uL (1.7-8.2); BASOPHILS % (AUTO) 0.2 % (0-2); EOSINOPHILS % (AUTO) 0.3 % (0-6); HEMATOCRIT 35.5 % (36.0-47.0); LYMPHOCYTES % (AUTO) 12.3 % (13-45); MEAN CORPUSCULAR HEMOGLOBIN 28.5 pg (27.0-33.4); MEAN CORPUSCULAR HGB CONC 33.7 g/dL (32.0-36.0); MEAN CORPUSCULAR VOLUME 85 fl (80-97); MONOCYTES % (AUTO) 5.7 % (3-13); PLATELET COUNT 388 10^3/uL (150-450); RED CELL DISTRIBUTION WIDTH 13.3 % (11.5-14.0); SEGMENTED NEUTROPHILS % (AUTO) 81.5 % (42-78); TOTAL CELLS COUNTED % (AUTO) 100 %; WHITE BLOOD COUNT 15.3 10^3/uL (4.0-10.5)
--- NOTE | 2017-10-15 13:07 | PDOC PROGRESS REPORT ---
Subjective Progress Note for:: 10/15/17 Subjective:: Seen patient resting in bed comfortably. She reports this abdominal pain is relatively subsiding and she claims she has an episode of vomiting of bilious material. Otherwise she is stable. Advancing her diet to solid diet if she tolerates well she is a potential discharge for tomorrow. Reason For Visit: COLITIS, ABD PAIN Physical Exam Vital Signs: Temp Pulse Resp BP Pulse Ox 98.7 F 94 12 127/72 H 99 10/15/17 07:48 10/15/17 07:48 10/15/17 07:48 10/15/17 07:48 10/15/17 07:48 Intake & Output 10/14/17 10/15/17 10/16/17 06:59 06:59 06:59 Intake Total 2430 Balance 2430 Weight 96.5 kg 98.8 kg General appearance: PRESENT: no acute distress, well-developed, well-nourished Respiratory exam: PRESENT: clear to auscultation nalini. ABSENT: rales, rhonchi, wheezes Cardiovascular exam: PRESENT: RRR. ABSENT: diastolic murmur, rubs, systolic murmur GI/Abdominal exam: PRESENT: tenderness - Lower abdominal Neurological exam: PRESENT: alert, awake, oriented to time, oriented to situation Results Laboratory Results: 10/15/17 10:38 10/15/17 05:47 10/15/17 10/15/17 10/15/17 05:47 05:47 10:38 WBC 15.7 H 15.3 H RBC 3.93 4.20 Hgb 11.1 L 12.0 Hct 33.8 L 35.5 L MCV 86 85 MCH 28.2 28.5 MCHC 32.8 33.7 RDW 13.4 13.3 Plt Count 367 388 Seg Neutrophils % 79.7 H 81.5 H Lymphocytes % 13.8 12.3 L Monocytes % 5.7 5.7 Eosinophils % 0.5 0.3 Basophils % 0.3 0.2 Absolute Neutrophils 12.5 H 12.5 H Absolute Lymphocytes 2.2 1.9 Absolute Monocytes 0.9 0.9 Absolute Eosinophils 0.1 0.0 Absolute Basophils 0.0 0.0 Sodium 140.6 Potassium 4.4 Chloride 107 Carbon Dioxide 21 L Anion Gap 13 BUN 6 L Creatinine 0.68 Est GFR ( Amer) > 60 Est GFR (Non-Af Amer) > 60 Glucose 81 Calcium 9.2 Assessment & Plan - Diagnosis (1) Generalized abdominal pain Is this a current diagnosis for this admission?: Yes Plan: Her abdominal pain is subsiding. (2) Infectious colitis Is this a current diagnosis for this admission?: Yes Plan: Continue current regimen. - Time Time Spent with patient: 25-34 minutes
[2017-10-15 14:07] LABS: ABSOLUTE BASOPHILS # (AUTO) 0.1 10^3/uL (0.0-0.2); ABSOLUTE LYMPHOCYTES (AUTO) 2.1 10^3/uL (0.5-4.7); ABSOLUTE MONOCYTES (AUTO) 0.8 10^3/uL (0.1-1.4); ABSOLUTE NEUT (AUTO) 12.8 10^3/uL (1.7-8.2); BASOPHILS % (AUTO) 0.4 % (0-2); EOSINOPHILS % (AUTO) 0.1 % (0-6); HEMATOCRIT 35.9 % (36.0-47.0); HEMOGLOBIN 11.9 g/dL (12.0-15.5); LYMPHOCYTES % (AUTO) 13.1 % (13-45); MEAN CORPUSCULAR HEMOGLOBIN 28.3 pg (27.0-33.4); MEAN CORPUSCULAR HGB CONC 33.3 g/dL (32.0-36.0); MEAN CORPUSCULAR VOLUME 85 fl (80-97); MONOCYTES % (AUTO) 5.2 % (3-13); PLATELET COUNT 421 10^3/uL (150-450); RED BLOOD COUNT 4.21 10^6/uL (3.72-5.28); RED CELL DISTRIBUTION WIDTH 13.1 % (11.5-14.0); SEGMENTED NEUTROPHILS % (AUTO) 81.2 % (42-78); TOTAL CELLS COUNTED % (AUTO) 100 %; WHITE BLOOD COUNT 15.7 10^3/uL (4.0-10.5)
[2017-10-15] MEDS: ACETAMINOPHEN 325 MG TABLET PO PRN (23:40)
[2017-10-16 04:48] LABS: ABSOLUTE BASOPHILS # (AUTO) 0.1 10^3/uL (0.0-0.2); ABSOLUTE LYMPHOCYTES (AUTO) 2.1 10^3/uL (0.5-4.7); ABSOLUTE MONOCYTES (AUTO) 0.8 10^3/uL (0.1-1.4); ABSOLUTE NEUT (AUTO) 13.2 10^3/uL (1.7-8.2); BASOPHILS % (AUTO) 0.6 % (0-2); EOSINOPHILS % (AUTO) 0.1 % (0-6); HEMATOCRIT 34.5 % (36.0-47.0); HEMOGLOBIN 11.4 g/dL (12.0-15.5); LYMPHOCYTES % (AUTO) 13.2 % (13-45); MEAN CORPUSCULAR HEMOGLOBIN 28.3 pg (27.0-33.4); MEAN CORPUSCULAR HGB CONC 33.2 g/dL (32.0-36.0); MEAN CORPUSCULAR VOLUME 85 fl (80-97); MONOCYTES % (AUTO) 4.6 % (3-13); PLATELET COUNT 384 10^3/uL (150-450); RED BLOOD COUNT 4.05 10^6/uL (3.72-5.28); RED CELL DISTRIBUTION WIDTH 13.2 % (11.5-14.0); SEGMENTED NEUTROPHILS % (AUTO) 81.5 % (42-78); TOTAL CELLS COUNTED % (AUTO) 100 %; WHITE BLOOD COUNT 16.2 10^3/uL (4.0-10.5)
[2017-10-16 05:21] LABS: ANION GAP 12 (5-19); BLOOD UREA NITROGEN 6 mg/dL (7-20); CALCIUM 9.6 mg/dL (8.4-10.2); CARBON DIOXIDE 24 mmol/L (22-30); CHLORIDE 106 mmol/L (98-107); GLUCOSE 85 mg/dL (75-110); POTASSIUM 4.5 mmol/L (3.6-5.0); SODIUM 141.9 mmol/L (137-145)
[2017-10-16] MEDS: METRONIDAZOLE 500 MG/NS RTU 100 ML IV SCH ×4 (06:01→23:45)
[2017-10-16] MEDS: CIPROFLOXACIN 400 MG/D5W RTU 400 MG/200 ML RTUPB IV SCH ×2 (06:01→17:08)
[2017-10-16] MEDS: HEPARIN SOD (PORCINE) 5,000 UNIT/ML 1 ML SYRINGE SUBCUT SCH ×3 (06:02→21:33)
[2017-10-16] MEDS: DOCUSATE SODIUM 100 MG CAPSULE PO SCH ×2 (09:52→17:10)
--- NOTE | 2017-10-16 14:48 | PDOC PROGRESS REPORT ---
Subjective Progress Note for:: 10/16/17 Subjective:: Patient seen at bedside. She is awake alert and oriented. She reports her abdominal pain is subsiding. Currently her only complaint is sensation of pressure in her rectum. During the encounter I talked also to her father who asked me several questions and addressed all of them. Reason For Visit: COLITIS, ABD PAIN Physical Exam Vital Signs: Temp Pulse Resp BP Pulse Ox 98.3 F 84 16 125/64 95 10/16/17 11:21 10/16/17 11:21 10/16/17 11:21 10/16/17 11:21 10/16/17 11:21 Intake & Output 10/15/17 10/16/17 10/17/17 06:59 06:59 06:59 Intake Total 2430 2373 240 Output Total 1150 Balance 2430 1223 240 Weight 98.8 kg 99.3 kg General appearance: PRESENT: no acute distress, well-developed, well-nourished Head exam: PRESENT: atraumatic, normocephalic Eye exam: PRESENT: conjunctiva pink, EOMI, PERRLA. ABSENT: scleral icterus Ear exam: PRESENT: normal external ear exam Mouth exam: PRESENT: moist, tongue midline Neck exam: ABSENT: carotid bruit, JVD, lymphadenopathy, thyromegaly Respiratory exam: PRESENT: clear to auscultation nalini. ABSENT: rales, rhonchi, wheezes Cardiovascular exam: PRESENT: RRR. ABSENT: diastolic murmur, rubs, systolic murmur Pulses: PRESENT: normal dorsalis pedis pul Vascular exam: PRESENT: normal capillary refill GI/Abdominal exam: PRESENT: normal bowel sounds, soft. ABSENT: distended, guarding, mass, organolmegaly, rebound, tenderness Rectal exam: PRESENT: deferred Extremities exam: PRESENT: full ROM. ABSENT: calf tenderness, clubbing, pedal edema Neurological exam: PRESENT: alert, awake, oriented to person, oriented to place , oriented to time, oriented to situation, CN II-XII grossly intact. ABSENT: motor sensory deficit Psychiatric exam: PRESENT: appropriate affect, normal mood. ABSENT: homicidal ideation, suicidal ideation Skin exam: PRESENT: dry, intact, warm. ABSENT: cyanosis, rash Results Laboratory Results: 10/16/17 03:41 10/16/17 03:41 10/16/17 10/16/17 03:41 03:41 WBC 16.2 H RBC 4.05 Hgb 11.4 L Hct 34.5 L MCV 85 MCH 28.3 MCHC 33.2 RDW 13.2 Plt Count 384 Seg Neutrophils % 81.5 H Lymphocytes % 13.2 Monocytes % 4.6 Eosinophils % 0.1 Basophils % 0.6 Absolute Neutrophils 13.2 H Absolute Lymphocytes 2.1 Absolute Monocytes 0.8 Absolute Eosinophils 0.0 Absolute Basophils 0.1 Sodium 141.9 Potassium 4.5 Chloride 106 Carbon Dioxide 24 Anion Gap 12 BUN 6 L Creatinine 0.72 Est GFR ( Amer) > 60 Est GFR (Non-Af Amer) > 60 Glucose 85 Calcium 9.6 Assessment & Plan - Diagnosis (1) Generalized abdominal pain Is this a current diagnosis for this admission?: Yes Plan: Her abdominal pain is subsiding. (2) Infectious colitis Is this a current diagnosis for this admission?: Yes Plan: Continue current regimen.
[2017-10-16] MEDS: ACETAMINOPHEN 325 MG TABLET PO PRN (17:08)
[2017-10-16] MEDS: ONDANSETRON HCL INJ/PF 4 MG/2 ML SDV IV PRN (18:18)
[2017-10-17] MEDS: NORMAL SALINE 1000 ML 1,000 ML IV PRN (04:22)
[2017-10-17] MEDS: ONDANSETRON HCL INJ/PF 4 MG/2 ML SDV IV PRN (04:58)
[2017-10-17] MEDS: CIPROFLOXACIN 400 MG/D5W RTU 400 MG/200 ML RTUPB IV SCH (04:58)
[2017-10-17] MEDS: ACETAMINOPHEN 325 MG TABLET PO PRN ×2 (05:01→09:26)
[2017-10-17 06:05] LABS: ABSOLUTE BASOPHILS # (AUTO) 0.1 10^3/uL (0.0-0.2); ABSOLUTE LYMPHOCYTES (AUTO) 1.9 10^3/uL (0.5-4.7); ABSOLUTE MONOCYTES (AUTO) 0.8 10^3/uL (0.1-1.4); ABSOLUTE NEUT (AUTO) 12.9 10^3/uL (1.7-8.2); BASOPHILS % (AUTO) 0.4 % (0-2); EOSINOPHILS % (AUTO) 0.2 % (0-6); HEMATOCRIT 33.6 % (36.0-47.0); HEMOGLOBIN 11.3 g/dL (12.0-15.5); LYMPHOCYTES % (AUTO) 12.3 % (13-45); MEAN CORPUSCULAR HEMOGLOBIN 28.6 pg (27.0-33.4); MEAN CORPUSCULAR HGB CONC 33.5 g/dL (32.0-36.0); MEAN CORPUSCULAR VOLUME 85 fl (80-97); PLATELET COUNT 380 10^3/uL (150-450); RED BLOOD COUNT 3.94 10^6/uL (3.72-5.28); RED CELL DISTRIBUTION WIDTH 13.4 % (11.5-14.0); SEGMENTED NEUTROPHILS % (AUTO) 82.1 % (42-78); TOTAL CELLS COUNTED % (AUTO) 100 %; WHITE BLOOD COUNT 15.8 10^3/uL (4.0-10.5)
[2017-10-17] MEDS: HEPARIN SOD (PORCINE) 5,000 UNIT/ML 1 ML SYRINGE SUBCUT SCH ×3 (06:20→22:09)
[2017-10-17 06:29] LABS: ANION GAP 11 (5-19); BLOOD UREA NITROGEN 8 mg/dL (7-20); CALCIUM 9.2 mg/dL (8.4-10.2); CARBON DIOXIDE 22 mmol/L (22-30); CHLORIDE 106 mmol/L (98-107); GLUCOSE 111 mg/dL (75-110); SODIUM 139.2 mmol/L (137-145)
[2017-10-17] MEDS: METRONIDAZOLE 500 MG/NS RTU 100 ML IV SCH ×2 (06:46→13:04)
[2017-10-17] MEDS: DOCUSATE SODIUM 100 MG CAPSULE PO SCH ×2 (09:27→16:58)
--- NOTE | 2017-10-17 12:01 | RADIOLOGY REPORT (SQ) ---
EXAM DESCRIPTION: CT ABD/PELVIS WITH IV ONLY COMPLETED DATE/TIME: 10/17/2017 11:43 am REASON FOR STUDY: abdominal pain COMPARISON: Comparison CT abdomen pelvis 03/01/2010, 10/09/2017, 10/10/2017 TECHNIQUE: CT scan of the abdomen and pelvis performed using helical scanning technique with dynamic intravenous contrast injection. No oral contrast. Images reviewed with lung, soft tissue, and bone windows. Reconstructed coronal and sagittal MPR images reviewed. Delayed images for evaluation of the urinary system also acquired. All images stored on PACS. All CT scanners at this facility use dose modulation, iterative reconstruction, and/or weight based d osing when appropriate to reduce radiation dose to as low as reasonably achievable (ALARA). [facility]: Dose Right [facility]: CareDose [facility]: Dose Right [facility]: Teradose 4D [facility]: dot life, ltd. CONTRAST TYPE AND DOSE: contrast/concentration: Isovue 370.00 mg/ml; Total Contrast Delivered: 100.0 ml; Total Saline Delivered: 30.0 ml RENAL FUNCTION: Creatinine 0.73 RADIATION DOSE: CT Rad equipment meets quality standard of care and radiation dose reduction techniq ues were employed. CTDIvol: 19.4 - 21.0 mGy. DLP: 2280 mGy-cm.. LIMITATIONS: Patient did not drink oral contrast. FINDINGS: LOWER CHEST: No significant findings. No nodules or infiltrates. LIVER: Normal size. No masses. No dilated ducts. SPLEEN: Normal size. No focal lesions. PANCREAS: Unremarkable. No. Pancreatic fluid collections. No pancreatic calcifications GALLBLADDER: No identified stones by CT criteria. No inflammatory changes to suggest cholecystitis. ADRENAL GLANDS: No significant masses or asymmetry. RIGHT KIDNEY AND URETER: No solid masses. No significant calcifications. No hydronephrosis or hyd roureter. LEFT KIDNEY AND URETER: No solid masses. No significant calcifications. No hydronephrosis or hydr oureter. AORTA AND VESSELS: No aneurysm. No dissection. Renal arteries, SMA, celiac without stenosis. RETROPERITONEUM: No retroperitoneal adenopathy, hemorrhage or masses. BOWEL AND PERITONEAL CAVITY: No masses or inflammatory changes. No free fluid or peritoneal masses. APPENDIX: Normal. PELVIS: On the right side, the ovary measures 5 x 3 cm in size, larger than on previous exams. There is stranding in the right adnexal fat. Questiontubo-ovarian abscess or other ovarian pathology. Th is report was discussed with Dr. Hawk. No free pelvic fluid. Normal size uterus and left ovar y. ABDOMINAL WALL: No masses. No hernias. BONES: No significant or acute findings. OTHER: No other significant finding. IMPRESSION: Findings worrisome for right-sided ovarian pathology, given fever and white count, consi shahnaz right tubo-ovarian abscess TECHNICAL DOCUMENTATION: JOB ID: [id number] Quality ID # [id number]: Final reports with documentation of one or more dose reduction techniques (e.g., Au tomated exposure control, adjustment of the mA and/or kV according to patient size, use of iterative reconstruction technique) 2010 [employer]- All Rights Reserved Reading location - IP/workstation name: [email or web address]
--- NOTE | 2017-10-17 12:58 | PDOC CONSULTATION ---
Consultation Consult Date: 10/17/17 Consult reason:: abdominal pain, nausea, vomiting, probable TOA on CT scan History of Present Illness Admission Date/PCP: 10/14/17 02:47 Patient complains of: recurrent admission for abdominal pain, nausea, vomiting History of Present Illness: TRISTA JOHN is a 27 year old female with recent admision for abdominal pain, nausea, vomiting. Was diagnosed with colitis on last admission and improved with antibiotics at that admission. returned to ER again on Tuesday and placed once again on Cipro and flagyl. CT scan done with this admission suggestive of possible TOA. states that she has had Chlamydia in the past approximately 6-7 years ago. Past Medical History Cardiac Medical History: Reports: None Pulmonary Medical History: Reports: None EENT Medical History: Reports: None Neurological Medical History: Reports: None Endocrine Medical History: Reports: None Renal/ Medical History: Reports: None Malignancy Medical History: Reports: None GI Medical History: Reports: Other - Colitis Musculoskeltal Medical History: Reports: None Skin Medical History: Reports: None Psychiatric Medical History: Reports: None Traumatic Medical History: Reports: None Infectious Medical History: Reports: None Social History Information Source: Patient Lives with: Family Smoking Status: Never Smoker Number of Years Smokin Frequency of Alcohol Use: Rare Hx Recreational Drug Use: No Drugs: None Hx Prescription Drug Abuse: No - Advance Directive Resuscitation Status: Full Code Family History Family History: DM, Hyperlipidemia, Hypertension Parental Family History Reviewed: Yes Children Family History Reviewed: Yes Sibling(s) Family History Reviewed.: Yes Medication/Allergy Home Medications: Ciprofloxacin HCl [Cipro 500 mg Tablet] 500 mg PO BID 10/10/17 Multivitamin [Daily Multiple Vitamin] 1 tab PO DAILY 10/10/17 Metronidazole [Flagyl 500 mg Tablet] 500 mg PO Q8 #30 tablet 10/12/17 Ondansetron [Zofran Odt 4 mg Tablet] 4 mg PO Q6HP PRN #30 tab.rapdis 10/12/17 Hydrocodone Bit/Acetaminophen [Hydrocodon-Acetaminophen 5-325] 1 each PO ASDIR PRN 10/14/17 Allergies/Adverse Reactions: No Known Allergies Allergy (Verified 12/15/16 08:45) Review of Systems Constitutional: PRESENT: as per HPI Physical Exam - Physical Exam Vital Signs: Temp Pulse Resp BP Pulse Ox 98.3 F 77 16 112/64 96 10/17/17 11:13 10/17/17 11:13 10/17/17 11:13 10/17/17 11:13 10/17/17 11:13 Intake & Output 10/16/17 10/17/17 10/18/17 06:59 06:59 06:59 Intake Total 2373 2065 450 Output Total 1150 1150 300 Balance 1223 915 150 Weight 99.3 kg General appearance: PRESENT: no acute distress, cooperative, obese GI/Abdominal exam: PRESENT: soft, tenderness - more over right adnexa. No rebound, no distension Result Laboratory Results: 10/17/17 05:49 10/17/17 05:49 10/17/17 10/17/17 05:49 05:49 WBC 15.8 H RBC 3.94 Hgb 11.3 L Hct 33.6 L MCV 85 MCH 28.6 MCHC 33.5 RDW 13.4 Plt Count 380 Seg Neutrophils % 82.1 H Lymphocytes % 12.3 L Monocytes % 5.0 Eosinophils % 0.2 Basophils % 0.4 Absolute Neutrophils 12.9 H Absolute Lymphocytes 1.9 Absolute Monocytes 0.8 Absolute Eosinophils 0.0 Absolute Basophils 0.1 Sodium 139.2 Potassium 4.0 Chloride 106 Carbon Dioxide 22 Anion Gap 11 BUN 8 Creatinine 0.73 Est GFR ( Amer) > 60 Est GFR (Non-Af Amer) > 60 Glucose 111 H Calcium 9.2 10/14/17 08:00 Stool - Stool - Final 10/14/17 08:00 Stool - Stool Stool Culture - Final NO SALMONELLA, SHIGELLA, CAMPYLOBACTER OR E.COLI 0157 RECOVERED. NO SHIGA TOXIN TEST PERFORMED Impressions: Abdomen/Pelvis CT 10/17/17 00:00 IMPRESSION: Findings worrisome for right-sided ovarian pathology, given fever and white count, consider right tubo-ovarian abscess Status: Image reviewed by me Assessment & Plan - Diagnosis (1) Tubo-ovarian abscess Is this a current diagnosis for this admission?: Yes (2) Generalized abdominal pain Is this a current diagnosis for this admission?: Yes (3) Infectious colitis Is this a current diagnosis for this admission?: Yes (4) Failed outpatient antibiotic treatment Is this a current diagnosis for this admission?: Yes (5) Leukocytosis Qualifiers: Leukocytosis type: bandemia Qualified Code(s): D72.825 - Bandemia Is this a current diagnosis for this admission?: Yes - Time Time Spent: 30 to 50 Minutes Critical Time spent with patient: Less than 15 minutes Medications reviewed and adjusted accordingly: Yes Anticipated discharge: Home Within: within 48 hours - Inpatient Certification Based on my medical assessment, after consideration of the patient's comorbidities, presenting symptoms, or acuity I expect that the services needed warrant INPATIENT care.: Yes I certify that my determination is in accordance with my understanding of Medicare's requirements for reasonable and necessary INPATIENT services [42 CFR 412.3e].: Yes Medical Necessity: Need Close Monitoring Due to Risk of Patient Decompensation, Need For IV Fluids, Need for Pain Control, Need for IV Antibiotics - Plan Summary Plan Summary: will switch antibiotics to cefoxitin and doxycycline. Depending on patient response may need to consider IR drainage however based on current CT images, unlikely to need drain placement. (This could change depending on patient's course on new treatment.) Discussed everything with patient who voices understanding. Control with pain and nausea medications per attending physicians discretion.
--- NOTE | 2017-10-17 14:57 | PDOC PROGRESS REPORT ---
Subjective Progress Note for:: 10/17/17 Subjective:: Ms. Harrell is a 27 years old black female patient readmitted for abdominal pain nausea and vomiting. Her prior admission was about a week ago for colitis and for which treated with Cipro and Flagyl and discharged home. Patient come back with the same complaints and at this time restarted because the same antibiotics IV. Her abdominal pain relatively improved but patient continued to have intermittent nausea and vomiting and a pressure sensation in her rectum. This morning was requested CT scan of the abdomen and pelvis with contrast and it is reported as worrisome for right tubal ovarian abscess. I consulted Dr. Kaity Jara who evaluated the patient and she started her on cefoxitin and doxycycline. If there is no clinical improvement patient may need intervention. Reason For Visit: COLITIS, ABD PAIN Physical Exam Vital Signs: Temp Pulse Resp BP Pulse Ox 98.3 F 77 16 112/64 96 10/17/17 11:13 10/17/17 11:13 10/17/17 11:13 10/17/17 11:13 10/17/17 11:13 Intake & Output 10/16/17 10/17/17 10/18/17 06:59 06:59 06:59 Intake Total 2373 2065 450 Output Total 1150 1150 300 Balance 1223 915 150 Weight 99.3 kg Results Laboratory Results: 10/17/17 05:49 10/17/17 05:49 10/17/17 10/17/17 05:49 05:49 WBC 15.8 H RBC 3.94 Hgb 11.3 L Hct 33.6 L MCV 85 MCH 28.6 MCHC 33.5 RDW 13.4 Plt Count 380 Seg Neutrophils % 82.1 H Lymphocytes % 12.3 L Monocytes % 5.0 Eosinophils % 0.2 Basophils % 0.4 Absolute Neutrophils 12.9 H Absolute Lymphocytes 1.9 Absolute Monocytes 0.8 Absolute Eosinophils 0.0 Absolute Basophils 0.1 Sodium 139.2 Potassium 4.0 Chloride 106 Carbon Dioxide 22 Anion Gap 11 BUN 8 Creatinine 0.73 Est GFR ( Amer) > 60 Est GFR (Non-Af Amer) > 60 Glucose 111 H Calcium 9.2 10/14/17 08:00 Stool - Stool - Final 10/14/17 08:00 Stool - Stool Stool Culture - Final NO SALMONELLA, SHIGELLA, CAMPYLOBACTER OR E.COLI 0157 RECOVERED. NO SHIGA TOXIN TEST PERFORMED Impressions: Abdomen/Pelvis CT 10/17/17 00:00 IMPRESSION: Findings worrisome for right-sided ovarian pathology, given fever and white count, consider right tubo-ovarian abscess Assessment & Plan - Diagnosis (1) Generalized abdominal pain Is this a current diagnosis for this admission?: Yes Plan: Her abdominal relatively improved. (2) Infectious colitis Is this a current diagnosis for this admission?: Yes Plan: Patient has been on Cipro and Flagyl but in light of CT finding which is worrisome for right TBO, her antibiotic is switched to cefoxitin and doxycycline per her OFFC SPEC. (3) Leukocytosis Is this a current diagnosis for this admission?: Yes Plan: As #2
[2017-10-17] MEDS ORDERED: ONDANSETRON HCL INJ/PF 4 MG/2 ML SDV IV PRN (15:00)
[2017-10-17] MEDS ORDERED: CEFOXITIN SODIUM 2 GM in NORMAL SALINE 100 ML IV SCH (16:00)
[2017-10-17] MEDS: DOXYCYCLINE HYCLATE 100 MG in NORMAL SALINE 250 ML IV SCH (17:00)
[2017-10-17] MEDS ORDERED: FENTANYL 12 MCG/HR PATCH.TD72 TD PRN (17:48)
[2017-10-17] MEDS ORDERED: DOXYCYCLINE HYCLATE 100 MG in DEXTROSE 5%-WATER 250 ML IV SCH (18:00)
[2017-10-17] MEDS ORDERED: CEFOXITIN INJ 1 GM VIAL IV SCH (18:00)
[2017-10-17] MEDS ORDERED: DOXYCYCLINE HYCLATE INJ 100 MG VIAL IV SCH (18:00)
[2017-10-17 18:44] LABS: CHLAM PCR NOT DETECTED (NOT DETECT); GON PCR DETECTED (NOT DETECT)
[2017-10-18] MEDS ORDERED: CEFOXITIN SODIUM 2 GM in NORMAL SALINE 100 ML IV SCH ×2 (04:00→10:00)
[2017-10-18 05:00] LABS: ABSOLUTE BASOPHILS # (AUTO) 0.1 10^3/uL (0.0-0.2); ABSOLUTE EOSINOPHILS # (AUTO) 0.1 10^3/uL (0.0-0.6); ABSOLUTE LYMPHOCYTES (AUTO) 2.7 10^3/uL (0.5-4.7); ABSOLUTE MONOCYTES (AUTO) 0.9 10^3/uL (0.1-1.4); ABSOLUTE NEUT (AUTO) 13.7 10^3/uL (1.7-8.2); BASOPHILS % (AUTO) 0.4 % (0-2); EOSINOPHILS % (AUTO) 0.4 % (0-6); HEMOGLOBIN 11.2 g/dL (12.0-15.5); LYMPHOCYTES % (AUTO) 15.3 % (13-45); MEAN CORPUSCULAR HEMOGLOBIN 28.1 pg (27.0-33.4); MEAN CORPUSCULAR HGB CONC 32.9 g/dL (32.0-36.0); MEAN CORPUSCULAR VOLUME 86 fl (80-97); MONOCYTES % (AUTO) 5.3 % (3-13); PLATELET COUNT 333 10^3/uL (150-450); RED BLOOD COUNT 3.97 10^6/uL (3.72-5.28); RED CELL DISTRIBUTION WIDTH 13.1 % (11.5-14.0); SEGMENTED NEUTROPHILS % (AUTO) 78.6 % (42-78); TOTAL CELLS COUNTED % (AUTO) 100 %; WHITE BLOOD COUNT 17.4 10^3/uL (4.0-10.5)
[2017-10-18] MEDS: DOXYCYCLINE HYCLATE 100 MG in NORMAL SALINE 250 ML IV SCH ×2 (05:22→17:07)
[2017-10-18] MEDS: HEPARIN SOD (PORCINE) 5,000 UNIT/ML 1 ML SYRINGE SUBCUT SCH ×3 (05:23→21:18)
[2017-10-18] MEDS: CEFOXITIN SODIUM 2 GM in DEXTROSE 5%-WATER 100 ML IV SCH ×2 (10:07→21:16)
[2017-10-18] MEDS: DOCUSATE SODIUM 100 MG CAPSULE PO SCH ×2 (10:08→17:08)
--- NOTE | 2017-10-18 16:27 | PDOC PROGRESS REPORT ---
Subjective Progress Note for:: 10/18/17 Subjective:: Patient continues to have right sided pain with radiation into her groin and to a lesser extent to the left side of her abdomen Reason For Visit: COLITIS, ABD PAIN Physical Exam Vital Signs: Temp Pulse Resp BP Pulse Ox 98.4 F 94 16 113/62 99 10/18/17 11:59 10/18/17 11:59 10/18/17 11:59 10/18/17 11:59 10/18/17 11:59 Intake & Output 10/17/17 10/18/17 10/19/17 06:59 06:59 06:59 Intake Total 2065 2872 Output Total 1150 1600 Balance 915 1272 Weight 102.8 kg General appearance: PRESENT: no acute distress, cooperative, obese Respiratory exam: PRESENT: clear to auscultation nalini Cardiovascular exam: PRESENT: RRR GI/Abdominal exam: PRESENT: soft, tenderness - Right lower quadrant Musculoskeletal exam: PRESENT: deformity, normal inspection Neurological exam: PRESENT: alert Psychiatric exam: PRESENT: normal mood Skin exam: PRESENT: warm Results Laboratory Results: 10/18/17 04:03 10/17/17 05:49 10/18/17 04:03 WBC 17.4 H RBC 3.97 Hgb 11.2 L Hct 34.0 L MCV 86 MCH 28.1 MCHC 32.9 RDW 13.1 Plt Count 333 Seg Neutrophils % 78.6 H Lymphocytes % 15.3 Monocytes % 5.3 Eosinophils % 0.4 Basophils % 0.4 Absolute Neutrophils 13.7 H Absolute Lymphocytes 2.7 Absolute Monocytes 0.9 Absolute Eosinophils 0.1 Absolute Basophils 0.1 Labs- Last Values WBC 17.4 10^3/uL (4.0-10.5) H 10/18/17 04:03 RBC 3.97 10^6/uL (3.72-5.28) 10/18/17 04:03 Hgb 11.2 g/dL (12.0-15.5) L 10/18/17 04:03 Hct 34.0 % (36.0-47.0) L 10/18/17 04:03 MCV 86 fl (80-97) 10/18/17 04:03 MCH 28.1 pg (27.0-33.4) 10/18/17 04:03 MCHC 32.9 g/dL (32.0-36.0) 10/18/17 04:03 RDW 13.1 % (11.5-14.0) 10/18/17 04:03 Plt Count 333 10^3/uL (150-450) 10/18/17 04:03 Seg Neutrophils % 78.6 % (42-78) H 10/18/17 04:03 Lymphocytes % 15.3 % (13-45) 10/18/17 04:03 Monocytes % 5.3 % (3-13) 10/18/17 04:03 Eosinophils % 0.4 % (0-6) 10/18/17 04:03 Basophils % 0.4 % (0-2) 10/18/17 04:03 Absolute Neutrophils 13.7 10^3/uL (1.7-8.2) H 10/18/17 04:03 Absolute Lymphocytes 2.7 10^3/uL (0.5-4.7) 10/18/17 04:03 Absolute Monocytes 0.9 10^3/uL (0.1-1.4) 10/18/17 04:03 Absolute Eosinophils 0.1 10^3/uL (0.0-0.6) 10/18/17 04:03 Absolute Basophils 0.1 10^3/uL (0.0-0.2) 10/18/17 04:03 Sodium 139.2 mmol/L (137-145) 10/17/17 05:49 Potassium 4.0 mmol/L (3.6-5.0) 10/17/17 05:49 Chloride 106 mmol/L (98-107) 10/17/17 05:49 Carbon Dioxide 22 mmol/L (22-30) 10/17/17 05:49 Anion Gap 11 (5-19) 10/17/17 05:49 BUN 8 mg/dL (7-20) 10/17/17 05:49 Creatinine 0.73 mg/dL (0.52-1.25) 10/17/17 05:49 Est GFR ( Amer) > 60 (>60) 10/17/17 05:49 Est GFR (Non-Af Amer) > 60 (>60) 10/17/17 05:49 Glucose 111 mg/dL (75-110) H 10/17/17 05:49 Lactic Acid 0.7 mmol/L (0.7-2.1) 10/14/17 01:05 Calcium 9.2 mg/dL (8.4-10.2) 10/17/17 05:49 Total Bilirubin 0.4 mg/dL (0.2-1.3) 10/14/17 01:05 Direct Bilirubin 0.3 mg/dL (0.0-0.4) 10/14/17 01:05 Neonat Total Bilirubin Not Reportable 10/14/17 01:05 Neonat Direct Bilirubin Not Reportable 10/14/17 01:05 Neonat Indirect Bili Not Reportable 10/14/17 01:05 AST 24 U/L (14-36) 10/14/17 01:05 ALT 35 U/L (9-52) 10/14/17 01:05 Alkaline Phosphatase 56 U/L (38-126) 10/14/17 01:05 Total Protein 7.3 g/dL (6.3-8.2) 10/14/17 01:05 Albumin 4.3 g/dL (3.5-5.0) 10/14/17 01:05 Lipase 33.0 U/L (23-300) 10/14/17 01:05 Urine Color YELLOW 10/14/17 04:32 Urine Appearance SLIGHTLY-CLOUDY 10/14/17 04:32 Urine pH 6.0 (5.0-9.0) 10/14/17 04:32 Ur Specific Goodell 1.012 10/14/17 04:32 Urine Protein NEGATIVE mg/dL (NEGATIVE) 10/14/17 04:32 Urine Glucose (UA) NEGATIVE mg/dL (NEGATIVE) 10/14/17 04:32 Urine Ketones NEGATIVE mg/dL (NEGATIVE) 10/14/17 04:32 Urine Blood LARGE (NEGATIVE) H 10/14/17 04:32 Urine Nitrite NEGATIVE (NEGATIVE) 10/14/17 04:32 Urine Bilirubin NEGATIVE (NEGATIVE) 10/14/17 04:32 Urine Urobilinogen NEGATIVE mg/dL (<2.0) 10/14/17 04:32 Ur Leukocyte Esterase LARGE (NEGATIVE) H 10/14/17 04:32 Urine WBC (Auto) 99 /HPF 10/14/17 04:32 Urine RBC (Auto) 2 /HPF 10/14/17 04:32 Urine Bacteria (Auto) 1+ /HPF 10/14/17 04:32 Squamous Epi Cells Auto 2 /HPF 10/14/17 04:32 Urine Mucus (Auto) RARE /LPF 10/14/17 04:32 Urine Ascorbic Acid NEGATIVE (NEGATIVE) 10/14/17 04:32 Urine HCG, Qual NEGATIVE (NEGATIVE) 10/14/17 01:10 Stool for White Cells NO WBCs SEEN 10/14/17 08:00 Chlamydia DNA (PCR) NOT DETECTED (NOT DETECT) 10/17/17 15:36 C. difficile Tox (PCR) Cancelled 10/14/17 08:00 N.gonorrhoeae DNA (PCR) DETECTED (NOT DETECT) H 10/17/17 15:36 Impressions: Abdomen/Pelvis CT 10/17/17 00:00 IMPRESSION: Findings worrisome for right-sided ovarian pathology, given fever and white count, consider right tubo-ovarian abscess Assessment & Plan - Diagnosis (1) Gonorrhea Is this a current diagnosis for this admission?: Yes Plan: Doxycycline should be adequate. Continue to monitor (2) Leukocytosis Is this a current diagnosis for this admission?: Yes Plan: Presumably due to her acute infection. Continue current antibiotics (3) Tubo-ovarian abscess Is this a current diagnosis for this admission?: Yes Plan: BILINGUAL SPEECH LANGUAGE PATHOLOGIST following (4) Anemia Is this a current diagnosis for this admission?: Yes Plan: I will send off iron studies (5) Morbid obesity Is this a current diagnosis for this admission?: Yes
[2017-10-18 17:16] LABS: ABSOLUTE BASOPHILS # (AUTO) 0.1 10^3/uL (0.0-0.2); ABSOLUTE LYMPHOCYTES (AUTO) 2.3 10^3/uL (0.5-4.7); ABSOLUTE MONOCYTES (AUTO) 0.9 10^3/uL (0.1-1.4); ABSOLUTE NEUT (AUTO) 12.4 10^3/uL (1.7-8.2); BASOPHILS % (AUTO) 0.4 % (0-2); EOSINOPHILS % (AUTO) 0.3 % (0-6); HEMATOCRIT 35.2 % (36.0-47.0); HEMOGLOBIN 11.9 g/dL (12.0-15.5); LYMPHOCYTES % (AUTO) 14.4 % (13-45); MEAN CORPUSCULAR HEMOGLOBIN 28.8 pg (27.0-33.4); MEAN CORPUSCULAR HGB CONC 33.8 g/dL (32.0-36.0); MEAN CORPUSCULAR VOLUME 85 fl (80-97); MONOCYTES % (AUTO) 5.4 % (3-13); PLATELET COUNT 444 10^3/uL (150-450); RED BLOOD COUNT 4.14 10^6/uL (3.72-5.28); RED CELL DISTRIBUTION WIDTH 13.3 % (11.5-14.0); SEGMENTED NEUTROPHILS % (AUTO) 79.5 % (42-78); TOTAL CELLS COUNTED % (AUTO) 100 %; WHITE BLOOD COUNT 15.6 10^3/uL (4.0-10.5)
[2017-10-18 18:53] LABS: ABSOLUTE RETICS # 0.055 10^6/uL (0.028-0.122)
[2017-10-18] MEDS: ACETAMINOPHEN 325 MG TABLET PO PRN (21:16)
[2017-10-19] MEDS: HEPARIN SOD (PORCINE) 5,000 UNIT/ML 1 ML SYRINGE SUBCUT SCH ×2 (06:39→13:23)
[2017-10-19] MEDS: DOXYCYCLINE HYCLATE 100 MG in NORMAL SALINE 250 ML IV SCH (06:44)
[2017-10-19] MEDS: CEFOXITIN SODIUM 2 GM in DEXTROSE 5%-WATER 100 ML IV SCH (09:57)
[2017-10-19] MEDS: DOCUSATE SODIUM 100 MG CAPSULE PO SCH ×2 (09:57→17:43)
[2017-10-19] MEDS ORDERED: CEFTRIAXONE SODIUM 1,500 MG in DEXTROSE 5%-WATER 100 ML IV SCH (13:15)
--- NOTE | 2017-10-19 13:22 | PDOC PROGRESS REPORT ---
Subjective Progress Note for:: 10/19/17 Subjective:: Patient has been going through IVs rapidly. Currently on #7. No current complaints. I discussed the findings of positive gonorrhea with the patient. Reason For Visit: COLITIS, ABD PAIN Physical Exam Vital Signs: Temp Pulse Resp BP Pulse Ox 99.1 F 86 16 123/64 99 10/19/17 07:00 10/19/17 07:00 10/19/17 07:00 10/19/17 07:00 10/19/17 07:00 Intake & Output 10/18/17 10/19/17 10/20/17 06:59 06:59 06:59 Intake Total 2872 3590 Output Total 1600 1725 Balance 1272 1865 Weight 102.8 kg 100.6 kg General appearance: PRESENT: no acute distress Respiratory exam: PRESENT: clear to auscultation nalini Cardiovascular exam: PRESENT: RRR GI/Abdominal exam: PRESENT: soft, tenderness - Right lower quadrant Neurological exam: PRESENT: alert Psychiatric exam: PRESENT: normal mood Skin exam: PRESENT: warm Results Laboratory Results: 10/18/17 16:56 10/17/17 05:49 10/18/17 10/18/17 10/18/17 16:56 16:56 16:56 WBC 15.6 H RBC 4.14 Hgb 11.9 L Hct 35.2 L MCV 85 MCH 28.8 MCHC 33.8 RDW 13.3 Plt Count 444 Seg Neutrophils % 79.5 H Lymphocytes % 14.4 Monocytes % 5.4 Eosinophils % 0.3 Basophils % 0.4 Absolute Neutrophils 12.4 H Absolute Lymphocytes 2.3 Absolute Monocytes 0.9 Absolute Eosinophils 0.0 Absolute Basophils 0.1 Retic Count (auto) 1.30 Absolute Retic 0.055 Iron 21.8 L Impressions: Abdomen/Pelvis CT 10/17/17 00:00 IMPRESSION: Findings worrisome for right-sided ovarian pathology, given fever and white count, consider right tubo-ovarian abscess Assessment & Plan - Diagnosis (1) Gonorrhea Is this a current diagnosis for this admission?: Yes Plan: Cefoxitin is not recommended for treatment of gonorrhea, doxycycline is at best second line for treatment of chlamydia. I will change to Rocephin and azithromycin to ensure we at least have that covered (2) Leukocytosis Is this a current diagnosis for this admission?: Yes Plan: Presumably due to her acute infection. Continue current antibiotics (3) Tubo-ovarian abscess Is this a current diagnosis for this admission?: Yes Plan: Per Fishing Hand (4) Anemia Qualifiers: Anemia type: other cause Other causes of anemia: other cause, not classified Qualified Code(s): D64.89 - Other specified anemias Is this a current diagnosis for this admission?: Yes Plan: Iron replacement (5) Morbid obesity Is this a current diagnosis for this admission?: Yes
--- NOTE | 2017-10-19 16:19 | RADIOLOGY REPORT (SQ) ---
EXAM DESCRIPTION: PICC INSERTION; U/S GUIDE FOR VASCULAR ACCESS; FLUORO/CV PLACEMENT COMPLETED DATE/TIME: 10/19/2017 4:01 pm REASON FOR STUDY: IV Access; IV ACCESS COMPARISON: None. FLUOROSCOPY TIME: 34 seconds 1 ultrasound and 1 digital chest image saved to PACS. TECHNIQUE: Fluoroscopic and ultrasound guided PICC placement. LIMITATIONS: None. PROCEDURE: After written consent and assessment were obtained, the patient was brought into the fluo roscopy room and place supine on the table. Ultrasound was used on the patient's right arm for PICC access. The right arm was prepped and draped in a sterile fashion along with the ultrasound probe. Th e entry site was anesthetized with 3 mL of 1% lidocaine. A 21 gauge 7 cm needle was advanced through the skin and into the basilic vein under live ultrasound guidance. An ultrasound image was saved to PACS confirming access site. A .018 guide wire was then inserted through the needle and into the elis ous system. The needle was the removed and an 11 blade scalpel was used to make a 1cm skin incision. A 5 fr peel-away sheath was advanced over the wire and into the venous system. A measurement was the n made using the existing wire and live fluoroscopic guidance. The wire was then removed and the trim med. The PICC was advanced through the peel-away sheath and into the venous system. The peel-away she ath was removed and the catheter was adhered to the patients arm with a stat lock. The catheter was t hen aspirated and flushed and a sterile bandage was placed over the access site. A fluoroscopic spot image was saved to PACS confirming the catheter tip within the superior vena cava. IMPRESSION: SUCCESSFUL PLACEMENT OF A 5 FR DUAL LUMEN 31 CM PICC IN THE RIGHT BASILIC VEIN. COMMENT: Patient medication list reviewed: Yes- Quality ID# [id number]:Eligible professional attests to doc umenting in the medical record they obtained, updated, or reviewed the patient's current medications. . Quality ID 145: Final reports for procedures using fluoroscopy that document radiation exposure lauren em, or exposure time and number of fluorographic images (if radiation exposure indices are not avail able) Quality ID #76: The patient was prepped and draped using maximum sterile barrier technique including cap, mask, sterile gown, sterile gloves, a large sterile sheet, hand hygiene, and 2% Chlorhexidine fo r cutaneous antisepsis. When ultrasound is used, sterile ultrasound techniques are followed requiring sterile gel and sterile probes. TECHNICAL DOCUMENTATION: JOB ID: [id number] [employer]- All Rights Reserved Reading location - IP/workstation name: [email or web address]
[2017-10-19 16:30] LABS: ABSOLUTE BASOPHILS # (AUTO) 0.1 10^3/uL (0.0-0.2); ABSOLUTE EOSINOPHILS # (AUTO) 0.1 10^3/uL (0.0-0.6); ABSOLUTE LYMPHOCYTES (AUTO) 2.8 10^3/uL (0.5-4.7); ABSOLUTE MONOCYTES (AUTO) 0.7 10^3/uL (0.1-1.4); ABSOLUTE NEUT (AUTO) 12.1 10^3/uL (1.7-8.2); BASOPHILS % (AUTO) 0.4 % (0-2); EOSINOPHILS % (AUTO) 0.5 % (0-6); HEMOGLOBIN 11.9 g/dL (12.0-15.5); MEAN CORPUSCULAR HEMOGLOBIN 28.3 pg (27.0-33.4); MEAN CORPUSCULAR HGB CONC 33.2 g/dL (32.0-36.0); MEAN CORPUSCULAR VOLUME 85 fl (80-97); MONOCYTES % (AUTO) 4.2 % (3-13); PLATELET COUNT 445 10^3/uL (150-450); RED BLOOD COUNT 4.21 10^6/uL (3.72-5.28); RED CELL DISTRIBUTION WIDTH 13.5 % (11.5-14.0); SEGMENTED NEUTROPHILS % (AUTO) 76.9 % (42-78); TOTAL CELLS COUNTED % (AUTO) 100 %; WHITE BLOOD COUNT 15.7 10^3/uL (4.0-10.5)
[2017-10-19] MEDS: FERROUS SULFATE 325 MG TABLET PO SCH (17:43)
[2017-10-19] MEDS: ASCORBIC ACID 500 MG TABLET PO SCH (17:43)
[2017-10-19] MEDS ORDERED: AZITHROMYCIN 1 GM SUSP PACKET PO ONE (18:00)
[2017-10-19] MEDS ORDERED: CEFTRIAXONE SODIUM 1,000 MG in NORMAL SALINE 100 ML IV SCH (19:00)
[2017-10-19] MEDS: ACETAMINOPHEN 325 MG TABLET PO PRN (20:21)
--- NOTE | 2017-10-19 21:43 | PDOC PROGRESS REPORT ---
Subjective Progress Note for:: 10/19/17 Subjective:: still with right sided pain intermittently. Pt also reports that she has some left sided pain intermittently as well. The generalized abdominal pain that she had has improved. + tolerating po intake, no emesis, no fever, no chills Reason For Visit: COLITIS, ABD PAIN Physical Exam - Physical Exam Vital Signs: Temp Pulse Resp BP Pulse Ox 98.9 F 90 20 120/68 98 10/19/17 19:22 10/19/17 19:22 10/19/17 19:22 10/19/17 19:22 10/19/17 11:00 Intake & Output 10/18/17 10/19/17 10/20/17 06:59 06:59 06:59 Intake Total 2872 3590 1650 Output Total 1600 1725 1900 Balance 1272 1865 -250 Weight 102.8 kg 100.6 kg 100.6 kg General appearance: PRESENT: no acute distress, well-developed, well-nourished Head exam: PRESENT: atraumatic, normocephalic Respiratory exam: PRESENT: clear to auscultation nalini, symmetrical, unlabored Cardiovascular exam: PRESENT: RRR. ABSENT: diastolic murmur, rubs, systolic murmur Vascular exam: PRESENT: normal capillary refill GI/Abdominal exam: PRESENT: normal bowel sounds, soft, tenderness - RLQ ttp, mild LLQ ttp. ABSENT: distended, guarding, mass, organolmegaly, rebound Rectal exam: PRESENT: deferred Extremities exam: PRESENT: full ROM. ABSENT: calf tenderness, clubbing, pedal edema Neurological exam: PRESENT: alert, awake, oriented to person, oriented to place , oriented to time, oriented to situation, CN II-XII grossly intact. ABSENT: motor sensory deficit Psychiatric exam: PRESENT: appropriate affect, normal mood. ABSENT: homicidal ideation, suicidal ideation Skin exam: PRESENT: dry, intact, warm. ABSENT: cyanosis, rash Result Laboratory Results: 10/19/17 16:06 10/17/17 05:49 10/19/17 16:06 WBC 15.7 H RBC 4.21 Hgb 11.9 L Hct 36.0 MCV 85 MCH 28.3 MCHC 33.2 RDW 13.5 Plt Count 445 Seg Neutrophils % 76.9 Lymphocytes % 18.0 Monocytes % 4.2 Eosinophils % 0.5 Basophils % 0.4 Absolute Neutrophils 12.1 H Absolute Lymphocytes 2.8 Absolute Monocytes 0.7 Absolute Eosinophils 0.1 Absolute Basophils 0.1 Impressions: Abdomen/Pelvis CT 10/17/17 00:00 IMPRESSION: Findings worrisome for right-sided ovarian pathology, given fever and white count, consider right tubo-ovarian abscess Guidance Fluoroscopy 10/19/17 00:00 IMPRESSION: SUCCESSFUL PLACEMENT OF A 5 FR DUAL LUMEN 31 CM PICC IN THE RIGHT BASILIC VEIN. Interventional Vascular Procedure 10/19/17 00:00 IMPRESSION: SUCCESSFUL PLACEMENT OF A 5 FR DUAL LUMEN 31 CM PICC IN THE RIGHT BASILIC VEIN. PICC Line Insertion 10/19/17 00:00 IMPRESSION: SUCCESSFUL PLACEMENT OF A 5 FR DUAL LUMEN 31 CM PICC IN THE RIGHT BASILIC VEIN. Status: Image reviewed by me Assessment & Plan - Diagnosis (1) Tubo-ovarian abscess Is this a current diagnosis for this admission?: Yes Plan: Probable Tubo-ovarian abscess noted on CT scan on 10/17 - not well defined. Dr. Betancourt spoke with Radiologist and per Radiologist not amenable to drainage based on 10/17 scan. Will get re-imaging tomorrow and re-eval possibility of drainage vs continued abx. If unable to drain here and needs IR drainage may need transfer to [facility] or facility with IR capabilities. CDC guidelines for treatment of TOA/PID (parenteral) Unasyn 3g IV Q 6 PLUS Doxy 200mg Q 24 hours. OR Cefoxitin 2g IV Q 6 PLUS Doxy 200mg Q 24 hours OR Clinda 900mg Q 8 PLUS Gent 2mg/kg load with 1.5mg/kg q8 hours Flagyl addition is also reasonable. Will change Abx regimen back to original regimen Cefoxitin/Doxy for PID/TOA - spoke with dry food products mixer hospitalist re: abx changes. Thank you for your assistance with this patient. Abx regimen suggested for outpatient treatment when she is discharged: Rocephin 250mg IM x 1 (also treatment for Gonorrhea) - already given PLUS Doxycycline 100mg po BID for 14 days (also provides coverage against Chlamydia) - I will leave rx with RN for discharge PLUS Flagyl 500mg po BID for 14 days - I will leave rx with RN for discharge Of note patient now has received Azithro and Rocephin for treatment of Gonorrhea /Chlamydia recreation worker MD will eval again tomorrow and further develop plan after re-imaging is performed. Patient may need buyer planner as well as she is having job and insurance difficulties. - Time Time Spent with patient: 25-34 minutes Medications reviewed and adjusted accordingly: Yes Anticipated discharge: Home Within: within 72 hours - Inpatient Certification Based on my medical assessment, after consideration of the patient's comorbidities, presenting symptoms, or acuity I expect that the services needed warrant INPATIENT care.: Yes I certify that my determination is in accordance with my understanding of Medicare's requirements for reasonable and necessary INPATIENT services [42 CFR 412.3e].: Yes Medical Necessity: Need For IV Fluids, Need for Pain Control, Need for IV Antibiotics, Risk of Complication if Not Cared For in Hospital Post Hospital Care: D/C New Client Banking Services Clerk Documentation - Plan Summary Plan Summary: Discharge to home when ready
[2017-10-20] MEDS ORDERED: CEFOXITIN INJ 1 GM VIAL IV SCH
[2017-10-20] MEDS ORDERED: CEFOXITIN INJ 1 GM VIAL ONE ×2 (00:27→06:05)
[2017-10-20] MEDS: CEFOXITIN INJ 1 GM VIAL IV PRN ×2 (01:18→06:22)
[2017-10-20] MEDS: HEPARIN SOD (PORCINE) 5,000 UNIT/ML 1 ML SYRINGE SUBCUT SCH ×3 (01:19→15:08)
[2017-10-20] MEDS: CEFOXITIN SODIUM 2 GM in DEXTROSE 5%-WATER 100 ML IV SCH ×3 (01:23→12:40)
[2017-10-20] MEDS ORDERED: NORMAL SALINE 10 ML SDV (AFTER EACH USE) IV PRN (09:22)
[2017-10-20] MEDS: FERROUS SULFATE 325 MG TABLET PO SCH (09:48)
[2017-10-20] MEDS: ASCORBIC ACID 500 MG TABLET PO SCH (09:48)
[2017-10-20] MEDS: DOCUSATE SODIUM 100 MG CAPSULE PO SCH (09:48)
[2017-10-20] MEDS ORDERED: DOXYCYCLINE HYCLATE INJ 100 MG VIAL IV SCH (10:00)
[2017-10-20] MEDS ORDERED: NORMAL SALINE 10 ML SDV (SCHEDULED) IV SCH (10:00)
[2017-10-20] MEDS ORDERED: DOXYCYCLINE HYCLATE 200 MG in DEXTROSE 5%-WATER 250 ML IV SCH (10:00)
[2017-10-20] MEDS ORDERED: PROMETHAZINE HCL INJ 25 MG/1 ML VIAL IV PRN (10:16)
--- NOTE | 2017-10-20 14:18 | RADIOLOGY REPORT (SQ) ---
EXAM DESCRIPTION: CT ABD/PELVIS ORAL ONLY COMPLETED DATE/TIME: 10/20/2017 1:50 pm REASON FOR STUDY: re-eval TOA/Drink contrast 2 hrs prior/Dr valera COMPARISON: 10/10/2017 TECHNIQUE: CT scan of the abdomen and pelvis performed with oral contrast and no intravenous contras t. Images reviewed with lung, soft tissue, and bone windows. Reconstructed coronal and sagittal MPR i mages reviewed. All images stored on PACS. All CT scanners at this facility use dose modulation, iterative reconstruction, and/or weight based d osing when appropriate to reduce radiation dose to as low as reasonably achievable (ALARA). [facility]: Dose Right [facility]: CareDose [facility]: Dose Right [facility]: Teradose 4D [facility]: Smart [employer] RADIATION DOSE: CT Rad equipment meets quality standard of care and radiation dose reduction techniq ues were employed. CTDIvol: 25.8 mGy. DLP: 1362 mGy-cm. mGy. LIMITATIONS: None. FINDINGS: LOWER CHEST: No significant findings. No nodules or infiltrates. NON-CONTRASTED LIVER, SPLEEN, ADRENALS: Evaluation limited by lack of IV contrast. No identified sign ificant masses. PANCREAS: No masses. No peripancreatic inflammatory changes. GALLBLADDER: No identified stones by CT criteria. No inflammatory changes to suggest cholecystitis. RIGHT KIDNEY AND URETER: No suspicious masses. Assessment limited by lack of IV contrast. Tiny nono bstructing renal calculus is again identified. No hydronephrosis or hydroureter. LEFT KIDNEY AND URETER: No suspicious masses. Assessment limited by lack of IV contrast. No signifi cant calcifications. No hydronephrosis or hydroureter. AORTA AND RETROPERITONEUM: No aneurysm. No retroperitoneal masses or adenopathy. Few scattered promi nent mesenteric lymph nodes are identified on the right. BOWEL AND PERITONEAL CAVITY: No obvious masses or inflammatory changes. No free fluid. APPENDIX: Normal. PELVIS, BLADDER, AND ABDOMINAL WALL: No abnormal pelvic masses. No abdominal wall hernias. Bladder un remarkable. BONES: No significant findings. OTHER: No other significant finding. IMPRESSION: No significant interval change when correlated with the previous study. Tiny nonobstruc ting right renal calculus. A few scattered prominent mesenteric lymph nodes are identified on the ri ght. Other findings as noted above TECHNICAL DOCUMENTATION: JOB ID: [id number] Quality ID # [id number]: Final reports with documentation of one or more dose reduction techniques (e.g., Au tomated exposure control, adjustment of the mA and/or kV according to patient size, use of iterative reconstruction technique) 2010 [employer]- All Rights Reserved Reading location - IP/workstation name: [email or web address]
[2017-10-20 14:23] LABS: ABSOLUTE BASOPHILS # (AUTO) 0.1 10^3/uL (0.0-0.2); ABSOLUTE EOSINOPHILS # (AUTO) 0.1 10^3/uL (0.0-0.6); ABSOLUTE LYMPHOCYTES (AUTO) 2.7 10^3/uL (0.5-4.7); ABSOLUTE MONOCYTES (AUTO) 0.7 10^3/uL (0.1-1.4); ABSOLUTE NEUT (AUTO) 10.4 10^3/uL (1.7-8.2); BASOPHILS % (AUTO) 0.7 % (0-2); EOSINOPHILS % (AUTO) 0.4 % (0-6); HEMATOCRIT 34.4 % (36.0-47.0); HEMOGLOBIN 11.4 g/dL (12.0-15.5); LYMPHOCYTES % (AUTO) 19.2 % (13-45); MEAN CORPUSCULAR HEMOGLOBIN 28.2 pg (27.0-33.4); MEAN CORPUSCULAR HGB CONC 33.1 g/dL (32.0-36.0); MEAN CORPUSCULAR VOLUME 85 fl (80-97); MONOCYTES % (AUTO) 5.1 % (3-13); PLATELET COUNT 440 10^3/uL (150-450); RED BLOOD COUNT 4.04 10^6/uL (3.72-5.28); RED CELL DISTRIBUTION WIDTH 13.2 % (11.5-14.0); SEGMENTED NEUTROPHILS % (AUTO) 74.6 % (42-78); TOTAL CELLS COUNTED % (AUTO) 100 %
--- NOTE | 2017-10-20 15:02 | PDOC PROGRESS REPORT ---
Subjective Progress Note for:: 10/20/17 Subjective:: She is doing better. Reason For Visit: COLITIS, ABD PAIN Pelvic Inflamatory Dz Physical Exam - Physical Exam Vital Signs: Temp Pulse Resp BP Pulse Ox 98.2 F 93 12 124/64 99 10/20/17 11:20 10/20/17 11:20 10/20/17 11:20 10/20/17 11:20 10/20/17 11:20 Intake & Output 10/19/17 10/20/17 10/21/17 06:59 06:59 06:59 Intake Total 3590 2248 1080 Output Total 1725 2300 2000 Balance 9185 -36 -310 Weight 100.6 kg 94.8 kg General appearance: PRESENT: no acute distress, well-developed, well-nourished Result Laboratory Results: 10/20/17 13:51 10/17/17 05:49 10/19/17 10/20/17 16:06 13:51 WBC 15.7 H 14.0 H RBC 4.21 4.04 Hgb 11.9 L 11.4 L Hct 36.0 34.4 L MCV 85 85 MCH 28.3 28.2 MCHC 33.2 33.1 RDW 13.5 13.2 Plt Count 445 440 Seg Neutrophils % 76.9 74.6 Lymphocytes % 18.0 19.2 Monocytes % 4.2 5.1 Eosinophils % 0.5 0.4 Basophils % 0.4 0.7 Absolute Neutrophils 12.1 H 10.4 H Absolute Lymphocytes 2.8 2.7 Absolute Monocytes 0.7 0.7 Absolute Eosinophils 0.1 0.1 Absolute Basophils 0.1 0.1 Impressions: Guidance Fluoroscopy 10/19/17 00:00 IMPRESSION: SUCCESSFUL PLACEMENT OF A 5 FR DUAL LUMEN 31 CM PICC IN THE RIGHT BASILIC VEIN. Interventional Vascular Procedure 10/19/17 00:00 IMPRESSION: SUCCESSFUL PLACEMENT OF A 5 FR DUAL LUMEN 31 CM PICC IN THE RIGHT BASILIC VEIN. PICC Line Insertion 10/19/17 00:00 IMPRESSION: SUCCESSFUL PLACEMENT OF A 5 FR DUAL LUMEN 31 CM PICC IN THE RIGHT BASILIC VEIN. Abdomen/Pelvis CT 10/20/17 08:46 IMPRESSION: No significant interval change when correlated with the previous study. Tiny nonobstructing right renal calculus. A few scattered prominent mesenteric lymph nodes are identified on the right. Other findings as noted above Assessment & Plan - Diagnosis (1) Pelvic inflammatory disease Is this a current diagnosis for this admission?: Yes - Time Time Spent with patient: Less than 15 minutes Medications reviewed and adjusted accordingly: Yes Anticipated discharge: Home Within: within 24 hours Disposition: Home on oral doxy and flagyl
[2017-10-20 15:56] VITALS: BP 121/59
--- NOTE | 2017-10-20 16:19 | PDOC DISCHARGE SUMMARY ---
General - Admit/Disc Date/PCP Admission Date/Primary Care Provider: 10/14/17 02:47 Discharge Date: 10/20/17 - Discharge Diagnosis (1) Gonorrhea Is this a current diagnosis for this admission?: Yes Summary: Treated with a single dose of Rocephin and azithromycin (2) Leukocytosis Is this a current diagnosis for this admission?: Yes Summary: Resolved. Patient will go home with oral antibiotics per [facility] (3) Anemia Is this a current diagnosis for this admission?: Yes Summary: Presumably from metromenorrhagia. Iron replacement. (4) Pelvic inflammatory disease Is this a current diagnosis for this admission?: Yes Summary: Treated as an inpatient with doxycycline and cefoxitin. She will be discharged on doxycycline and Flagyl per [facility], and follow-up with them in a week (5) Morbid obesity Is this a current diagnosis for this admission?: Yes - Additional Information Resuscitation Status: Full Code Discharge Diet: As Tolerated, Regular Discharge Activity: Activity As Tolerated, Balance Activity w/Rest, Pelvic Rest Home Medications: Multivitamin [Daily Multiple Vitamin] 1 tab PO DAILY 10/10/17 Metronidazole [Flagyl 500 mg Tablet] 500 mg PO Q8 #30 tablet 10/12/17 Ondansetron [Zofran Odt 4 mg Tablet] 4 mg PO Q6HP PRN #30 tab.rapdis 10/12/17 Hydrocodone Bit/Acetaminophen [Hydrocodon-Acetaminophen 5-325] 1 each PO ASDIR PRN 10/14/17 Ascorbic Acid [Vitamin C 500 mg Tablet] 500 mg PO BIDPCBS tablet 10/20/17 Ferrous Sulfate [Feosol 325 mg Tablet] 325 mg PO BIDPCBS tablet 10/20/17 History of Present Illness Patient complains of: Abdominal pain History of Present Illness: TRISTA JOHN is a 27 year old female with a past medical history of obesity and hospitalization for infectious colitis 4 days ago discharged yesterday. Patient was greatly improved at time of discharge after empiric treatment with IV Cipro and Flagyl. She was discharged with oral equivalents and compliant however developed a return of abdominal pain and loose stools prompting her return to the emergency room. She admits nausea without vomiting and diarrhea without blood. She denies polyuria, dysuria, previous episode, infectious contacts or suspect meals. In the emergency room she is found to have leukocytosis of 18,000. She is referred to the hospitalist for admission Hospital Course Hospital Course: She was admitted initially treated with Cipro and Flagyl. CT scan of the abdomen showed questionable tubo-ovarian abscess. So she was seen by [facility] in consultation. Her gonorrhea PCR came back positive so she was treated with a single dose of Rocephin and azithromycin. Otherwise her pelvic infection was treated with cefoxitin and doxycycline. Follow-up CT showed no evidence of abscess, so she was discharged by [facility] today with oral antibiotics and they will follow her closely as an outpatient. Physical Exam Vital Signs: Temp Pulse Resp BP Pulse Ox 98.2 F 93 12 121/59 L 99 10/20/17 15:51 10/20/17 15:51 10/20/17 15:51 10/20/17 15:51 10/20/17 15:51 Intake & Output 10/19/17 10/20/17 10/21/17 06:59 06:59 06:59 Intake Total 3590 2248 1080 Output Total 1725 2300 2000 Balance 1865 -52 -920 Weight 100.6 kg 94.8 kg General appearance: PRESENT: no acute distress, morbidly obese Respiratory exam: PRESENT: clear to auscultation nalini Cardiovascular exam: PRESENT: RRR GI/Abdominal exam: PRESENT: soft Neurological exam: PRESENT: alert Psychiatric exam: PRESENT: appropriate affect Skin exam: PRESENT: warm Results Laboratory Results: 10/20/17 13:51 10/17/17 05:49 10/19/17 10/20/17 16:06 13:51 WBC 15.7 H 14.0 H RBC 4.21 4.04 Hgb 11.9 L 11.4 L Hct 36.0 34.4 L MCV 85 85 MCH 28.3 28.2 MCHC 33.2 33.1 RDW 13.5 13.2 Plt Count 445 440 Seg Neutrophils % 76.9 74.6 Lymphocytes % 18.0 19.2 Monocytes % 4.2 5.1 Eosinophils % 0.5 0.4 Basophils % 0.4 0.7 Absolute Neutrophils 12.1 H 10.4 H Absolute Lymphocytes 2.8 2.7 Absolute Monocytes 0.7 0.7 Absolute Eosinophils 0.1 0.1 Absolute Basophils 0.1 0.1 Impressions: Guidance Fluoroscopy 10/19/17 00:00 IMPRESSION: SUCCESSFUL PLACEMENT OF A 5 FR DUAL LUMEN 31 CM PICC IN THE RIGHT BASILIC VEIN. Interventional Vascular Procedure 10/19/17 00:00 IMPRESSION: SUCCESSFUL PLACEMENT OF A 5 FR DUAL LUMEN 31 CM PICC IN THE RIGHT BASILIC VEIN. PICC Line Insertion 10/19/17 00:00 IMPRESSION: SUCCESSFUL PLACEMENT OF A 5 FR DUAL LUMEN 31 CM PICC IN THE RIGHT BASILIC VEIN. Abdomen/Pelvis CT 10/20/17 08:46 IMPRESSION: No significant interval change when correlated with the previous study. Tiny nonobstructing right renal calculus. A few scattered prominent mesenteric lymph nodes are identified on the right. Other findings as noted above Qualifiers - * PATEINT BEING DISCHARGED WITH ANY OF THE FOLLOWING DIAGNOSIS?: No
== END 2017-10-20 16:53 | disposition home or self-care (01) | DRG 392 ==
LOC: ER 23:10 → EH 10-14 02:47 → 5 10-14 04:05
PROVIDERS: ADMIT Internal Medicine; ATTEND Internal Medicine
PROC: 02HV33Z Insertion of Infusion Device into Superior Vena Cava, Percutaneous Approach (ICD-10-PCS; principal; 2017-10-19)
PROC: B548ZZA Ultrasonography of Superior Vena Cava, Guidance (ICD-10-PCS; 2017-10-19)
PROC: B518ZZA Fluoroscopy of Superior Vena Cava, Guidance (ICD-10-PCS; 2017-10-19)
DX: A09 Infectious gastroenteritis and colitis, unspecified (principal); A54.9 Gonococcal infection, unspecified; D72.829 Elevated white blood cell count, unspecified; N70.93 Salpingitis and oophoritis, unspecified; D64.9 Anemia, unspecified; R11.10 Vomiting, unspecified; E66.01 Morbid (severe) obesity due to excess calories; Z68.38 Body mass index [BMI] 38.0-38.9, adult
CPT/HCPCS: 36415; 36569; 74176; 74177; 76937; 77001; 80048; 80053; 81001; 81025; 83540; 83605; 83690; 85025; 85045; 87040; 87045; 87086; 87205; 87491; 87591; 89055; 96361; 96374; 99285; J0694; J0696; J0744; J1642; J1644; J2405; J3490; J7030; J7050; J7060; Q0144

== ENCOUNTER → 2018-07-19 | Outpatient (CLI) | payer MEDICAID ==
--- NOTE | 2018-07-19 16:59 | XCELERA REPORT ---
[address] [address] Upper Extremity Venous Evaluation Name: TRISTA JOHN Age: 27 yrs Gender: Female : 1990 Patient Status: Outpatient Patient Location: Study Date: 07/19/2018 11:01 AM Procedure: Unilateral duplex scan of the left upper extremity veins was performed, including responses to compression and other maneuvers. Reason For Study: LUE PAIN Ordering Physician: JAMES HARTLEY Performed By: Toy Michaels Left Sided Venous Evaluation Normal vessel filling wall to wall, compression and augmentation as well as Colour flow down to the forearm veins. Interpretation Summary Normal compression, patency, spontaneous and phasic flow of the left upper extremity veins. : JAMES HARTLEY > Javy Stewart
== END ==
LOC: SP 10:50
PROVIDERS: ATTEND Physician Assistant Medical
DX: M79.602 Pain in left arm (principal)
CPT/HCPCS: 93971

== ENCOUNTER 2018-11-09 07:14 | Emergency (ER) | payer SELFPAY ==
[2018-11-09] MEDS ORDERED: ONDANSETRON HCL INJ/PF 4 MG/2 ML SDV IV ONE ×2 (09:30→13:03)
[2018-11-09] MEDS ORDERED: NORMAL SALINE 1000 ML 1,000 ML IV ONE ×2 (09:30→13:03)
--- NOTE | 2018-11-09 09:32 | ER Document Report ---
ED Medical Screen (RME) - General Chief Complaint: Nausea/Vomiting/Diarrhea Stated Complaint: VOMITING/DIARRHEA/WEAKNESS/ABDOMINAL PAIN Time Seen by Provider: 11/09/18 09:30 Primary Care Provider: JAMES HARTLEY PA-C [Primary Care Provider] - Follow up as needed Mode of Arrival: Ambulatory Information source: Patient Notes: Patient presents complaining of generalized weakness that started yesterday. Patient states early this morning she started to have vomiting and diarrhea. Patient does complain of abdominal pain that has been migrating from the lateral side lower pelvic area and down to the upper epigastrium. Patient does report a history of colitis treated to gonorrhea previously. I have greeted and performed a rapid initial assessment of this patient. A comprehensive ED assessment and evaluation of the patient, analysis of test results and completion of the medical decision making process will be conducted by additional ED providers. TRAVEL OUTSIDE OF THE [place] IN LAST 30 DAYS: No - Related Data Allergies/Adverse Reactions: No Known Allergies Allergy (Verified 11/09/18 07:23) Past Medical History - Social History Frequency of alcohol use: Occasional Renal/ Medical History: Denies: Hx Peritoneal Dialysis - Immunizations Hx Diphtheria, Pertussis, Tetanus Vaccination: No - unknown History of Influenza Vaccine for 04/2017 - 09/2017 Season: Yes Influenza Administration Date for 04/2017 - 09/2017 Season: 03/21/17 Physical Exam - Vital signs Vitals: Temp Pulse Resp BP Pulse Ox 98.7 F 92 16 128/73 H 98 11/09/18 07:47 11/09/18 07:47 11/09/18 07:47 11/09/18 07:47 11/09/18 07:47 - Abdominal Tenderness: Tender - Epigastric Course - Vital Signs Vital signs: Temp Pulse Resp BP Pulse Ox 98.7 F 92 16 128/73 H 98 11/09/18 07:47 11/09/18 07:47 11/09/18 07:47 11/09/18 07:47 11/09/18 07:47 Doctor's Discharge - Discharge Referrals: JAMES HARTLEY PA-C [Primary Care Provider] - Follow up as needed
[2018-11-09 10:16] LABS: HEMATOCRIT 44.5 % (36.0-47.0); HEMOGLOBIN 14.8 g/dL (12.0-15.5); MEAN CORPUSCULAR HEMOGLOBIN 28.7 pg (27.0-33.4); MEAN CORPUSCULAR HGB CONC 33.1 g/dL (32.0-36.0); MEAN CORPUSCULAR VOLUME 87 fl (80-97); PLATELET COUNT 346 10^3/uL (150-450); RED BLOOD COUNT 5.15 10^6/uL (3.72-5.28); RED CELL DISTRIBUTION WIDTH 13.7 % (11.5-14.0); WHITE BLOOD COUNT 14.6 10^3/uL (4.0-10.5)
[2018-11-09 10:36] LABS: ALANINE AMINOTRANSFERASE 24 U/L (9-52); ALKALINE PHOSPHATASE 85 U/L (38-126); ANION GAP 15 (5-19); ASPARTATE AMINO TRANSFERASE 38 U/L (14-36); BILIRUBIN,DIRECT 0.4 mg/dL (0.0-0.4); BILIRUBIN,TOTAL 1.3 mg/dL (0.2-1.3); BLOOD UREA NITROGEN 16 mg/dL (7-20); CARBON DIOXIDE 25 mmol/L (22-30); CHLORIDE 103 mmol/L (98-107); GLUCOSE 87 mg/dL (75-110); POTASSIUM 4.6 mmol/L (3.6-5.0); SODIUM 142.5 mmol/L (137-145); TOTAL PROTEIN 9.5 g/dL (6.3-8.2)
[2018-11-09 10:37] LABS: APPEARANCE,URINE SLIGHTLY-CLOUDY; BILIRUBIN,URINE NEGATIVE (NEGATIVE); COLOR,URINE YELLOW; GLUCOSE, URINE NEGATIVE (NEGATIVE); KETONES,URINE 20 mg/dL (NEGATIVE); LEUKOCYTE ESTERASE,URINE NEGATIVE (NEGATIVE); NITRITE,URINE NEGATIVE (NEGATIVE); PROTEIN,URINE NEGATIVE (NEGATIVE); URINE SPECIFIC GRAVITY 1.028; UROBILINOGEN,URINE NEGATIVE mg/dL (<2.0)
[2018-11-09 10:39] LABS: ABSOLUTE LYMPHOCYTES# (MANUAL) 0.9 10^3/uL (0.5-4.7); ABSOLUTE MONOCYTES # (MANUAL) 0.1 10^3/uL (0.1-1.4); ABSOLUTE NEUTROPHILS# (MANUAL) 13.3 10^3/uL (1.7-8.2); BASOPHILS % (MANUAL) 1 % (0-2); EOSINOPHILS % (MANUAL) 1 % (0-6); LYMPHOCYTES % (MANUAL) 5 % (13-45); MONOCYTES % (MANUAL) 1 % (3-13); SEGMENTED NEUTROPHILS % (MAN) 91 % (42-78); TOTAL CELLS COUNTED 100
[2018-11-09 10:40] LABS: PLATELET COMMENT ADEQUATE; RBC MORPHOLOGY COMMENT NORMO-CYTIC/CHROMIC; TOXIC GRANULATION SLIGHT; TOXIC VACUOLATION PRESENT
[2018-11-09 14:11] LABS: CHLAM PCR NOT DETECTED (NOT DETECT); GON PCR NOT DETECTED (NOT DETECT)
--- NOTE | 2018-11-09 16:10 | RADIOLOGY REPORT (SQ) ---
EXAM DESCRIPTION: CT ABD/PELVIS WITH IV ORAL COMPLETED DATE/TIME: 11/09/2018 3:57 pm REASON FOR STUDY: Low abdom pain with vomiting, diarrhea, Hx colitis COMPARISON: 10/20/2017 TECHNIQUE: CT scan of the abdomen and pelvis performed using helical scanning technique with dynamic intravenous contrast injection. No oral contrast. Images reviewed with lung, soft tissue, and bone w indows. Reconstructed coronal and sagittal MPR images reviewed. Delayed images for evaluation of the urinary system also acquired. All images stored on PACS. All CT scanners at this facility use dose modulation, iterative reconstruction, and/or weight based d osing when appropriate to reduce radiation dose to as low as reasonably achievable (ALARA). [facility]: Dose Right [facility]: CareDose [facility]: Dose Right [facility]: Teradose 4D [facility]: UC CEIN CONTRAST TYPE AND DOSE: contrast/concentration: Isovue 350.00 mg/ml; Total Contrast Delivered: 100.0 ml; Total Saline Delivered: 72.0 ml RENAL FUNCTION: GFR > 60. RADIATION DOSE: CT Rad equipment meets quality standard of care and radiation dose reduction techniq ues were employed. CTDIvol: NaN - NaN mGy. DLP: 0 mGy-cm.. LIMITATIONS: None. FINDINGS: LOWER CHEST: No significant findings. LIVER: Normal size. No enhancing masses. No dilated ducts. SPLEEN: Normal size. No focal lesions. PANCREAS: No masses identified. No significant calcifications. No adjacent inflammation or peripancre atic fluid collections. Pancreatic duct not dilated. GALLBLADDER: No calcified stones. No inflammatory changes to suggest cholecystitis. ADRENAL GLANDS: No significant masses. RIGHT KIDNEY AND URETER: No cysts identified. No solid masses identified. No calcified stones. No hyd ronephrosis or hydroureter. LEFT KIDNEY AND URETER: No cysts identified. No solid masses identified. No calcified stones. No hydr onephrosis or hydroureter. AORTA AND VESSELS: No aneurysm. No dissection. Renal arteries, SMA, celiac without significant stenos is. RETROPERITONEUM: No bulky retroperitoneal adenopathy. BOWEL AND PERITONEAL CAVITY: No obstruction or inflammatory changes. No free fluid. APPENDIX: Normal. PELVIS: No mass. No free fluid. Unremarkable bladder. ABDOMINAL WALL: No masses. No hernias. BONES: No acute findings. OTHER: No other significant finding. IMPRESSION: NO ACUTE FINDINGS IN THE ABDOMEN OR PELVIS ON CT SCAN WITH IV CONTRAST. TECHNICAL DOCUMENTATION: JOB ID: [id number] Quality ID # [id number]: Final reports with documentation of one or more dose reduction techniques (e.g., Au tomated exposure control, adjustment of the mA and/or kV according to patient size, use of iterative reconstruction technique) 2010 [employer]- All Rights Reserved Reading location - IP/workstation name: [email or web address]
--- NOTE | 2018-11-09 16:51 | ER Document Report ---
ED General - General Chief Complaint: Nausea/Vomiting/Diarrhea Stated Complaint: VOMITING/DIARRHEA/WEAKNESS/ABDOMINAL PAIN Time Seen by Provider: 11/09/18 09:30 Primary Care Provider: JAMES HARTLEY PA-C [NO LOCAL MD] - Follow up as needed Mode of Arrival: Ambulatory Notes: Patient awakened about 1 AM with stomach pains and vomiting. Diarrhea started soon after. She was sweating nauseated and dizzy. Her abdominal pain was stomach feels tight now. Patient says she is vomited about 8 times in diarrhea stools. Not constipated. No blood in the bowel movements. Has felt as if she had some fever last night. But otherwise felt well when she went to bed. Patient had a similar presentation and illness about a year ago for which she was diagnosed as having colitis and was in this hospital for an extended stay. She says that she also was told at that time that she had gonorrhea and was treated for that condition as well. TRAVEL OUTSIDE OF THE [place] IN LAST 30 DAYS: No - Related Data Allergies/Adverse Reactions: metronidazole [From Flagyl] Allergy (Verified 11/09/18 14:13) Past Medical History - General Information source: Patient - Social History Smoking Status: Never Smoker Frequency of alcohol use: Occasional Family History: Reviewed & Not Pertinent, DM, Hyperlipidemia, Hypertension Patient has suicidal ideation: No Patient has homicidal ideation: No GI Medical History: Reports: Other - Colitis about a year ago. Surgical Hx: Negative - Immunizations Hx Diphtheria, Pertussis, Tetanus Vaccination: No - unknown Review of Systems - Review of Systems Notes: REVIEW OF SYSTEMS: CONSTITUTIONAL : Denies fever. EENT: Denies eye, ear, nose or mouth or throat pain or other symptoms. CARDIOVASCULAR: Denies chest pain. RESPIRATORY: Denies cough, chest congestion, or shortness of breath. GASTROINTESTINAL: See HPI. GENITOURINARY: Denies difficulty or painful urinating, urinary frequency, blood in urine. Denies any vaginal discharge. MUSCULOSKELETAL: Denies back or neck pain. Denies joint pain or swelling. SKIN: Denies rash or skin lesions. NEUROLOGICAL: Denies LOC or altered mental status. Denies headache. Denies sensory loss or motor deficits. ALL OTHER SYSTEMS REVIEWED AND NEGATIVE. Physical Exam - Vital signs Vitals: Temp Pulse Resp BP Pulse Ox 98.7 F 92 16 128/73 H 98 11/09/18 07:47 11/09/18 07:47 11/09/18 07:47 11/09/18 07:47 11/09/18 07:47 Interpretation: Normal. No: Febrile Notes: PHYSICAL EXAMINATION: GENERAL: Well-appearing, in no acute distress. HEAD: Atraumatic, normocephalic. EYES: Pupils equal round and reactive to light, extraocular movements intact. ENT: oropharynx clear without exudates. Moist mucous membranes. NECK: Normal range of motion, supple. LUNGS: Breath sounds clear and equal bilaterally. HEART: Regular rate and rhythm without murmurs. ABDOMEN: Soft, mild tenderness across the lower abdomen, but no guarding and no rebound. Not specifically tender over McBurney's point. BACK: No tenderness throughout entire back. EXTREMITIES: Normal range of motion without pain. NEUROLOGICAL: Normal speech, normal gait. Normal sensory, motor, and reflex exams. Awake, alert, and oriented x3. Cranial nerves normal. PSYCH: Normal mood, normal affect. SKIN: Warm, dry, no rashes. Course - Re-evaluation Re-evalutation: 11/09/18 19:18 Patient was given a couple of liters of saline as well as antiemetic, Zofran with some improvement in symptoms. Her lab work had a white count of 14,600 with some shift. Other labs were unremarkable. Patient had a CT scan which did not show evidence of colitis. In fact, it did not show any significant abnormality. Appendix was seen and said to be normal. - Vital Signs Vital signs: Temp Pulse Resp BP Pulse Ox 98.1 F 91 16 131/71 H 98 11/09/18 16:52 11/09/18 16:52 11/09/18 16:52 11/09/18 16:52 11/09/18 16:52 - Laboratory Result Diagrams: 11/09/18 09:58 11/09/18 09:58 Laboratory results interpreted by me: 11/09/18 11/09/18 11/09/18 09:58 09:58 09:58 WBC 14.6 H Seg Neuts % (Manual) 91 H Lymphocytes % (Manual) 5 L Monocytes % (Manual) 1 L Abs Neuts (Manual) 13.3 H AST 38 H Total Protein 9.5 H Urine Ketones 20 H Urine Blood MODERATE H - Diagnostic Test Radiology reviewed: Image reviewed, Reports reviewed - CT scan of the abdomen showed no acute abdominal disorder. No colitis. No appendicitis. Discharge - Discharge Clinical Impression: Abdominal pain, vomiting, and diarrhea, Viral illness, Dehydration Condition: Stable Disposition: HOME, SELF-CARE Additional Instructions: VOMITING: Vomiting (or nausea without vomiting) can be caused by many other different problems. It can mean that something's wrong with the stomach, such as ulcers or inflammation or the intestinal tract, such as appendicitis. But it can also be a symptom of a problem that has nothing to do with the stomach or intestines. Vomiting is common with severe headaches, earaches, tonsillitis, and kidney infections, etc. We see it with pneumonia or heart attacks. Drugs can cause nausea and vomiting. Many abdominal problems cause vomiting; for example, gallstones, kidney stones, pancreatitis, and intestinal obstruction (blocked bowels). In most cases, curing the vomiting depends on fixing the problem that caused it. For temporary relief, we may use an anti-nausea medicine. For home use, we can prescribe suppositories, chewable pills, pills that dissolve in the mouth, or liquid anti-nausea drugs. If the vomiting seems to be caused by a problem in the stomach, acid-suppressing drugs may be prescribed as well. It's important to avoid dehydration. Sip small amounts of clear liquids (soft drinks, tea, broth, etc) . Try to take fluids frequently even if you are vomiting to prevent dehydration. Take increasing amounts of fluid and when liquids are being consumed successfully, advance to small amounts of bland food (toast, soups, mashed potatoes, etc.) until you are able to resume a regular diet. Avoid aspirin, tobacco, and alcohol. If the vomiting worsens, if the problem that's making you vomit worsens, or if there's evidence of bleeding in the stomach (such as black, tarry stool, or bloody or black vomit), you should return immediately. Also, return if abdominal pain worsens or becomes localized to one area or you develop high fever. Call your doctor if you aren't improved in 24 hours. DIARRHEA, NON-SPECIFIC: Diarrhea means frequent, watery stools. There are many causes. Any problem that keeps the intestinal tract from absorbing water from the stool can lead to diarrhea. A sudden new diarrhea problem is usually caused by a virus, food sensitivity, toxic bacteria, or drugs. In this case, we expect the problem to go away soon. Testing is done only if you seem seriously ill from the diarrhea. If you have chronic diarrhea, or diarrhea that keeps coming back, we need to find out why. Chronic diarrhea can be due to inflammation of the bowels such as Crohn's disease or ulcerative colitis, food sensitivity such as intolerance to lactose or wheat protein, irritable bowel syndrome, and other problems. If your diarrhea is a significant problem but it's not clear why you have it, we'll refer you to a specialist for further testing. During an episode of diarrhea, drink small amounts (two to six ounces) of clear liquids (soft drinks, sport drinks, herb teas, broth, etc). Take fluids frequently to prevent dehydration. It's usually not a problem to take mild anti- diarrhea medication such as Kaopectate or Pepto-Bismol. As the diarrhea eases, advance to small amounts of bland food (mashed potato, toast) for 24 hours. Call the physician if blood appears in your vomit or stool, if vomiting lasts longer than 24 hours, if the abdominal pain worsens or becomes localized to one area, if you develop high fever, or if you become lightheaded and weak. VIRAL SYNDROME: The physician has diagnosed a viral infection. Viruses not only cause "colds," but can cause many different symptoms including generalized aching, fever, headache, cough, diarrhea, nausea, vomiting, and fatigue. The treatment, for the most part, is simply relief of symptoms. This means that antibiotics are usually not given. Rest, fluids, pain medications and, occasionally, medication for the specific symptoms that are most bothersome will be prescribed. Use good handwashing to avoid passing the virus to others. Shared toys should be cleaned with disinfectant. Clean the toilets, sinks, and counter surfaces in bathrooms. Launder clothing in hot water. Contact the physician if you develop any new or unusual symptoms such as severe headache, stiff neck, high fever, chest pain, productive cough, or shortness of breath. You should be rechecked if you don't see marked improvement within seven to 10 days. INTRAVENOUS (I V) FLUIDS: As part of your care today, you received intravenous (IV) fluids. IV fluids are administered to patients who are dehydrated or to those who have certain chemical (electrolyte) abnormalities that need correcting. ANTINAUSEA MEDICATION: You have been given a medication to suppress nausea and vomiting. This type of medication can be given as a shot, pill, or suppository. It will usually last for many hours. Pills and shots usually last six to eight hours. For the typical illness, only one or two doses of the medication may be necessary. Mild lightheadedness may occur. This type of medicine can cause drowsiness. Do not drive or operate dangerous machinery while under its influence. Do not mix with alcohol. See your doctor at once if you have muscle spasms or tightness, or uncontrollable motions (particularly of the neck, mouth, or jaw). Persistent vomiting or severe lightheadedness should also be evaluated by the physician. FOLLOW-UP CARE: If you have been referred to a physician for follow-up care, call the physicians office for an appointment as you were instructed or within the next two days. If you experience worsening or a significant change in your symptoms, notify the physician immediately or return to the Emergency Department at any time for re-evaluation. Prescriptions: Ondansetron [Zofran Odt 4 mg Tablet] 1 - 2 tab PO Q4H PRN #10 tab.rapdis PRN Reason: For Nausea/Vomiting Referrals: JAMES HARTLEY PA-C [NO LOCAL MD] - Follow up as needed
[2018-11-09 17:08] VITALS: BP 131/71
== END 2018-11-09 17:07 | disposition home or self-care (01) ==
LOC: ER 07:14
DX: R10.9 Unspecified abdominal pain (principal); R10.819 Abdominal tenderness, unspecified site; B34.9 Viral infection, unspecified; R11.2 Nausea with vomiting, unspecified; R19.7 Diarrhea, unspecified; E86.0 Dehydration; R42 Dizziness and giddiness; R61 Generalized hyperhidrosis; Z87.19 Personal history of other diseases of the digestive system; Z88.1 Allergy status to other antibiotic agents
CPT/HCPCS: 96376; 99284; 96361; 96374; 36415; 83690; 84703; 85025; 80053; 81001; 87491; 87591; 74177; J2405; J7030

== ENCOUNTER → 2020-03-17 | Outpatient (CLI) | payer BC ==
--- NOTE | 2020-03-17 10:55 | WOMENS IMAGING REPORT ---
EXAM DESCRIPTION: U/S ABDOMEN LIMITED IMAGES COMPLETED DATE/TIME: 03/17/2020 9:14 am REASON FOR STUDY: R10.13 EPIGASTRIC PAIN R10.13 EPIGASTRIC PAIN R11.2 NAUSEA WITH VOMITING, UNSPEC IFIED COMPARISON: 05/11/2011 TECHNIQUE: Dynamic and static grayscale images acquired of the abdomen and recorded on PACS. Additio nal selected color Doppler and spectral images recorded. LIMITATIONS: None. FINDINGS: PANCREAS: Nonvisualized due to bowel gas and body habitus. LIVER: No masses. Echotexture normal. LIVER VASCULATURE: Normal directional flow of the main portal vein and hepatic veins. GALLBLADDER: No stones. Normal wall thickness. No pericholecystic fluid. ULTRASOUND-DETECTED HIRSCH'S SIGN: Negative. INTRAHEPATIC DUCTS AND COMMON DUCT: CBD and intrahepatic ducts normal caliber. No filling defects. INFERIOR VENA CAVA: Normal flow. AORTA: Partially visualized. No aneurysm. RIGHT KIDNEY: Normal size measuring 10.3 cm. Normal echogenicity. No solid or suspicious masses. No hydronephrosis. No calcifications. PERITONEAL AND RIGHT PLEURAL SPACE: No ascites or effusions. OTHER: No other significant findings. IMPRESSION: Unremarkable right upper quadrant ultrasound as visualized. TECHNICAL DOCUMENTATION: JOB ID: [id number] 2010 [employer]- All Rights Reserved Reading location - IP/workstation name: [email or web address]
== END ==
LOC: WI 08:43
PROVIDERS: ATTEND Internal Medicine Gastroenterology
DX: R10.13 Epigastric pain (principal); R11.2 Nausea with vomiting, unspecified
CPT/HCPCS: 76705

== ENCOUNTER → 2020-03-31 | Outpatient (CLI) | payer BC ==
--- NOTE | 2020-03-31 12:37 | RADIOLOGY REPORT (SQ) ---
EXAM DESCRIPTION: NM GASTRIC EMPTYING STUDY IMAGES COMPLETED DATE/TIME: 03/31/2020 12:23 pm REASON FOR STUDY: R11.2 NAUSEA WITH VOMITING, UNSPECIFIED R11.2 NAUSEA WITH VOMITING, UNSPECIFIED R 10.13 EPIGASTRIC PAIN COMPARISON: None. RADIONUCLIDE AND DOSE: 2 millicuries Tc-99m Sulfur Colloid. Egg salad sandwich The route of agent administration: Oral. TECHNIQUE: 1 minute serial static imaging performed at time of meal, 1 hour, 2 hours, 3 hours, and 4 hours as needed. Once stomach reaches 90% emptying, the test is complete. Image intensity values pl otted with respect to time with linear regression algorithm. LIMITATIONS: None. FINDINGS: Patient was observed for 4 hours. Immediate post meal serves as baseline. Gastric emptying at 30 minutes was 46.5%. Gastric emptying at 60 minutes was 63.8% Gastric emptying at 90 minutes was 74.6%. Gastric emptying at 120 minutes was 81.9%. Gastric emptying at 240 minutes was 94.9%. Normal values: 60 minutes: 30-90% retained. If less than 30%, abnormally rapid emptying. If greater than 90%, delaye d gastric emptying. 120 minutes: <60% retained. If greater than 60%, delayed gastric emptying. 240 minutes: <10% retained. If greater than 10%, delayed gastric emptying. IMPRESSION: NORMAL GASTRIC EMPTYING. TECHNICAL DOCUMENTATION: JOB ID: [id number] 2010 [employer]- All Rights Reserved rev-11/18 Reading location - IP/workstation name: [email or web address]
== END ==
LOC: RAD 07:50
PROVIDERS: ATTEND Internal Medicine Gastroenterology
DX: R11.2 Nausea with vomiting, unspecified (principal); R10.13 Epigastric pain
CPT/HCPCS: 78264; A9541

== ENCOUNTER → 2020-05-14 | Outpatient (CLI) | payer BC ==
[2020-05-14 10:44] LABS: ABSOLUTE LYMPHOCYTES (AUTO) 1.9 10^3/uL (0.5-4.7); ABSOLUTE MONOCYTES (AUTO) 0.5 10^3/uL (0.1-1.4); ABSOLUTE NEUT (AUTO) 7.6 10^3/uL (1.7-8.2); BASOPHILS % (AUTO) 0.1 % (0-2); EOSINOPHILS % (AUTO) 0.4 % (0-6); HEMATOCRIT 36.3 % (36.0-47.0); HEMOGLOBIN 12.6 g/dL (12.0-15.5); LYMPHOCYTES % (AUTO) 18.8 % (13-45); MEAN CORPUSCULAR HEMOGLOBIN 29.6 pg (27.0-33.4); MEAN CORPUSCULAR HGB CONC 34.7 g/dL (32.0-36.0); MEAN CORPUSCULAR VOLUME 85 fl (80-97); MONOCYTES % (AUTO) 5.2 % (3-13); PLATELET COUNT 269 10^3/uL (150-450); RED BLOOD COUNT 4.26 10^6/uL (3.72-5.28); RED CELL DISTRIBUTION WIDTH 13.9 % (11.5-14.0); SEGMENTED NEUTROPHILS % (AUTO) 75.5 % (42-78); TOTAL CELLS COUNTED % (AUTO) 100 %; WHITE BLOOD COUNT 10.1 10^3/uL (4.0-10.5)
[2020-05-14 10:59] LABS: ALKALINE PHOSPHATASE 67 U/L (38-126); ASPARTATE AMINO TRANSFERASE 23 U/L (14-36); BILIRUBIN,DIRECT 0.3 mg/dL (0.0-0.4); BILIRUBIN,TOTAL 0.9 mg/dL (0.2-1.3); CHOLESTEROL 237.04 mg/dL (0-200); TOTAL PROTEIN 6.2 g/dL (6.3-8.2); TRIGLYCERIDES 103 mg/dL (<150)
[2020-05-14 11:11] LABS: DIRECT LDL 159 mg/dL (<100)
--- OUTSIDE RECORDS SUMMARY | 2020-05-15 18:25 | XMS REPORT ---
:1990 [facility] Address [facility] [address] [place] [address] Care Team Providers Name Role Phone Unavailable Unavailable Unavailable Allergies, Adverse Reactions, Alerts This patient has no known allergies or adverse reactions. Medications This patient has no known medications. Problems This patient has no known problems. Procedures This patient has no known procedures. Results This patient has no known results. Social History This patient has no known social history. Vital Signs This patient has no known vital signs.
== END ==
LOC: OD 09:35
PROVIDERS: ATTEND Physician Assistant Medical
DX: L70.0 Acne vulgaris (principal); L81.0 Postinflammatory hyperpigmentation
CPT/HCPCS: 36415; 80061; 80076; 85025

== ENCOUNTER → 2020-07-07 | Outpatient (CLI) | payer BC ==
[2020-07-07 09:16] LABS: ABSOLUTE LYMPHOCYTES (AUTO) 1.9 10^3/uL (0.5-4.7); ABSOLUTE MONOCYTES (AUTO) 0.5 10^3/uL (0.1-1.4); ABSOLUTE NEUT (AUTO) 4.8 10^3/uL (1.7-8.2); BASOPHILS % (AUTO) 0.2 % (0-2); EOSINOPHILS % (AUTO) 0.4 % (0-6); HEMATOCRIT 37.9 % (36.0-47.0); HEMOGLOBIN 12.7 g/dL (12.0-15.5); LYMPHOCYTES % (AUTO) 25.9 % (13-45); MEAN CORPUSCULAR HEMOGLOBIN 28.4 pg (27.0-33.4); MEAN CORPUSCULAR HGB CONC 33.6 g/dL (32.0-36.0); MEAN CORPUSCULAR VOLUME 85 fl (80-97); MONOCYTES % (AUTO) 6.8 % (3-13); PLATELET COUNT 336 10^3/uL (150-450); RED BLOOD COUNT 4.48 10^6/uL (3.72-5.28); RED CELL DISTRIBUTION WIDTH 13.1 % (11.5-14.0); SEGMENTED NEUTROPHILS % (AUTO) 66.7 % (42-78); TOTAL CELLS COUNTED % (AUTO) 100 %; WHITE BLOOD COUNT 7.2 10^3/uL (4.0-10.5)
[2020-07-07 09:45] LABS: ALBUMIN 4.4 g/dL (3.5-5.0); ALKALINE PHOSPHATASE 65 U/L (38-126); ASPARTATE AMINO TRANSFERASE 30 U/L (14-36); BILIRUBIN,DIRECT 0.3 mg/dL (0.0-0.4); BILIRUBIN,TOTAL 0.7 mg/dL (0.2-1.3); CHOLESTEROL 262.02 mg/dL (0-200); TOTAL PROTEIN 7.2 g/dL (6.3-8.2); TRIGLYCERIDES 179 mg/dL (<150)
[2020-07-07 09:57] LABS: DIRECT LDL 178 mg/dL (<100)
[2020-07-07 09:59] LABS: VLDL CHOLESTEROL 35.8 mg/dL (10-31)
== END ==
LOC: OD 08:31
PROVIDERS: ATTEND Physician Assistant Medical
DX: L70.0 Acne vulgaris (principal); Z79.899 Other long term (current) drug therapy
CPT/HCPCS: 36415; 80061; 80076; 85025